=== PATIENT | male | born 1950 | race Caucasian/White ===

== ENCOUNTER 2019-07-04 11:20 | Outpatient (CLI) | payer MEDICARE, OTHER, SELFPAY ==
[2019-07-04] VITALS (9 sets, daily range): BP systolic 82–97; BP diastolic 53–61; PULSE 60–71; RESP 11–17; TEMP 36.1–37.1; O2SAT 97–100; BMI 20.7
--- NOTE | 2019-07-04 | DI.CT.S_ITS ---
PROCEDURE: CT BIOPSY PELVIS DEEP Sedation analgesia for 30 minutes. INDICATIONS: pelvis mass TECHNIQUE: The indications, alternatives, benefits, risks, and possible complications of the procedure were communicated to the patient. Informed written consent from the patient was obtained and placed in the chart. Continuous EKG and hemodynamic monitoring was started by trained personnel. The patient was brought to the CT suite and golf club head inspector spiral CT imaging was performed with localization grid. The appropriate site for percutaneous access to the biopsy target was marked, was prepped and draped sterilely, and was infused with local anaesthesia. Under CT guidance, a core biopsy trocar and needle set was advanced to the biopsy target, and specimen(s) were obtained. The trocar and needle were then removed, and the patient was sent for post-procedure monitoring. COMPARISON: None. FINDINGS: Biopsy site: Right retroperitoneal mass in the lower abdomen. Needle: 20 gauge biopsy needle with introducer trocar. Number of passes: 6 Medications: 1% lidocaine for local anaesthesia. IV Fentanyl and Versed for conscious sedation for 30 minutes (see nursing record). Complications: None. IMPRESSION: Successful CT-guided biopsy of right retroperitoneal mass. Dictated by: Filiberto Alegre M.D. on 07/04/2019 at 18:08 Approved by: Filiberto Alegre M.D. on 07/04/2019 at 18:10
--- NOTE | 2019-07-04 14:10 | PATH_ITS ---
[facility] Accession Number: [id number] . 01 Material submitted: . retroperitoneum - RIGHT RETROPERITONEAL MASS LOWER BACK/PELVIS . 01 Clinical history: . NEEDLE CORE BIOPSY . 01 Diagnosis: Retroperitoneum, Right, Core needle biopsy: --- Atypical lymphoid infiltrate ----- Predominately B-lymphoid cells See comment [facility] 07/11/2019 1453 Local . 01 Comment: Core needle biopsy fragments demonstrate a monotonous population of small/medium sized lymphoid cells which, by immunohistochemistry, comprises predominately B-lymphoid cells which do not express CD5, CD10 or CyclinD1. The mitotic index is low (Ki-67 < 5%). The biopsy type precludes assessment of the architecture of the process. These findings are suspicious for but are not definitively diagnostic of a lymphoproliferative disorder. Dense lymphoid infiltration can also be seen in retroperitoneal sites in association with other non-hematopoietic abnormalities. If possible, excisional biopsy or flow cytometric analysis of an additional sample (submit fresh tissue in RPMI) may be helpful. Clinical correlation is requested. . 01 Electronically signed: . Jayne Marino MD, Pathologist NPI- [id number] . 01 Gross description: . RIGHT RETROPERITONEAL MASS LOWER BACK/PELVIS: Received in formalin are 2 fragment(s) of arellano, soft tissue measuring 0.5 x 0.1 x 0.1 cm to 0.6 x 0.1 x 0.1 cm submitted entirely in 1 cassette(s) /[facility] [place] 07/04/2019 2311 Local . 01 Microscopic: . H/E levels demonstrate fragments of tissue compatible with a core needle biopsy. Soft tissue is infiltrated by a monotonous population of cells with high N/C ratios; focally, there is significant crush artifact. Follicular architecture is not identified; germinal centers are not identified. The infiltrate appears to be of small and medium sized cells; some pigment is seen in the background. There is no evidence of cells with Quoc-Nathan or Hodgkin-like cytologic features. There is no evidence of a significant eosinophilic infiltrate; mitotic activity is not readily apparent. There is no evidence of active inflammation, granulomata or necrosis. In order to more fully characterize this process, immunohistochemical stains were indicated. The controls reacted appropriately. See below for Laboratory information. . Findings: JAMESON: Negative SOX-10: Negative Synaptophysin: Negative Desmin: Negative CD43: A subset of cells is positive (membranous staining/strong) . PAX5: Many positive (nuclear staining/strong), forming sheets. . CD3: Scattered positive (membranous/strong), none large or forming clusters CD5: Scattered positive (membranous/strong), none large or forming clusters; pattern mirrors CD3, fewer in number CD10: Negative CD23: Scattered cells positive (cytoplasmic/moderate); non-specific staining present. BCL2: Majority of cells positive (cytoplasmic/strong) BCL6: Essentially negative CyclinD1: Negative Ki-67: Less than 5% positive (nuclear/strong) . Interpretation: Predominately B-lymphoid infiltrate with low mitotic activity; no definitive evidence of clonality. . Technical Note: The immunohistochemistry stains reported were performed at [facility] [place] ([address], [facility] [address]). They were developed and their performance characteristics determined by [employer] They have not been cleared or approved by the U.S. Food and Drug Administration, although such approval is not required for analyte-specific reagents of this type. . 01 Pathologist provided ICD-10: K68.9 . 01 CPT . 450573, P00807, K07702, [id number] Performed at: 01 [facility] [address], [place], [place] [id number] MD Vitor Kovacs MD Phone: [phone]
--- NOTE | 2019-07-04 14:41 | SUR.PHASEII ---
PT RETURNED FROM DI IN STABLE CONDITION, VSS. PT ALERT AND TALKING TO RN. PT BROTHER BROUGHT TO BEDSIDE. DRSG OBSERVED TO BE C/D/I. PT DENIED ANY PAIN DISCOMFORT OR NAUSEA. IV SITE CLEAR AND INFUSING WITHOUT DIFFICULTLY, HUNG BY DI NURSE. BED IN LOWEST POSITION AND CALL LIGHT GIVEN TO PT. PT APPEARS COMFORTABLE AT THIS TIME.
--- NOTE | 2019-07-04 15:24 | SUR.PHASEII ---
PT DRSG REMAINED C/D/I AT Q15 MINUTE CHECKS FIRST HOUR AFTER COMPLETION OF PROCEDURE. PT SITTING UP, EATING LUNCH AND CONVERSING WITH PT BROTHER. PT CONTINUES TO DENY ANY PAIN/DISCOMFORT AT THIS TIME.
[2019-07-04 17:10] LABS: Hematocrit 30.1 % (41-53)
--- NOTE | 2019-07-04 17:21 | SUR.PHASEII ---
Dr. Alegre notified of lab results and patient status. VVO patient may discharge.
== END 2019-07-04 17:40 | disposition home or self-care (01) ==
PROVIDERS: Radiology Diagnostic Radiology; Visit Provider Internal Medicine
PROC: BR2CZZZ Computerized Tomography (CT Scan) of Pelvis (ICD-10-PCS; CPT 77012; principal; 2019-07-04 13:00)
DX: R19.00 Intra-abdominal and pelvic swelling, mass and lump, unspecified site (principal)
CPT/HCPCS: 27041; 36415; 49180; 77012; 85014; Q9967

== ENCOUNTER 2022-12-23 12:38 | Inpatient (IN) | payer MEDICARE, OTHER, SELFPAY ==
[2022-12-23] VITALS (14 sets, daily range): BP systolic 103–121; BP diastolic 51–61; PULSE 59–67; RESP 9–19; TEMP 36.4–36.8; O2SAT 96–100; BMI 16.5
--- NOTE | 2022-12-23 13:30 | ED_ITS ---
HPI - Extremity Injury (Lower) <Carmelo Shaw PA-C - Last Filed: 12/23/22 17:25> General Chief Complaint: Fall Stated Complaint: Fall, hit head, Rt. hip pain with shortening. Time Seen by Provider: 12/23/22 13:29 History of Present Illness HPI Narrative: This is a 72-year-old male presents emergency department due to a fall after a dog jumped up and knocked him down. He is complaining of primarily severe right hip pain although he is reporting hitting his head. Denies any loss of consciousness. Is not taking any blood thinners. Mainly complaining of right hip pain and denies any other extremity pain. Last had breakfast at 10:00 a.m. this morning. 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 Related Data Home Medications Medication Instructions Recorded Confirmed citalopram 40 mg tablet 40 mg PO DAILY 07/04/19 07/04/19 gabapentin 300 mg capsule 600 mg PO TID 07/04/19 07/04/19 pantoprazole 20 mg tablet,delayed 40 mg PO DAILY 07/04/19 07/04/19 release (Protonix) primidone 250 mg tablet 250 mg PO DAILY 07/04/19 07/04/19 propranolol 80 mg tablet 80 mg PO DAILY 07/04/19 07/04/19 Allergies Allergy/AdvReac Type Severity Reaction Status Date / Time haloperidol Allergy Severe Hallucinati Verified 07/04/19 12:49 ng Penicillins Allergy Severe swelling Verified 07/04/19 12:50 Review of Systems <Carmelo Shaw PA-C - Last Filed: 12/23/22 17:25> Review of Systems Narrative: GENERAL: Denies chills, fatigue, malaise, fever, sweats. HEENT: Reports head pain Denies sinus pain, ear pain, sore throat, difficulty swallowing, dizziness. RESPIRATORY: Denies dyspnea, cough, wheezing, hemoptysis, sputum. CARDIOVASCULAR: Denies chest pain, palpitations, orthopnea, edema, GASTROINTESTINAL: Denies nausea, vomiting, abdominal pain, diarrhea, const ipation, melena. : Denies dysuria, frequency, incontinence, hematuria, urinary retention. MUSCULOSKELETAL: Reports right hip pain SKIN: Denies rash, skin lesions, or other NEUROLOGIC: Denies weakness, headache, numbness, change in speech, confusion, seizures, incoordination. PSYCHIATRIC: No concerning psychosocial issues. 12 point review of systems is negative except for those stated above Patient History <Carmelo Shaw PA-C - Last Filed: 12/23/22 17:25> Social History household members: none Smoking Status: Former smoker alcohol intake: never Smoking Status: Former smoker Substance Use Type: does not use Exam <JOSELITO Raya Last Filed: 12/23/22 17:25> Narrative Exam Narrative: GENERAL: Well-developed patient, in mild distress. HEAD: Some tenderness to palpation to the posterior head, EYES: Pupils equal round and reactive. Extraocular motions intact. No scleral icterus. No injection or drainage. ENT: Nose without bleeding, purulent drainage. Throat without erythema, tonsillar hypertrophy or exudate. Airway patent. NECK: Trachea midline. No tenderness of the cervical spine CARDIOVASCULAR: Regular rate and rhythm without murmurs, gallops, or rubs. RESPIRATORY: Clear to auscultation. Breath sounds equal bilaterally. No wheezes, rales, or rhonchi. GASTROINTESTINAL: Right-sided abdominal tenderness to palpation EXTREMITIES: In a pelvic sheet, Severe tenderness to palpation to the right hip, shortened externally rotated, distally neurovascularly intact, 2+ dorsalis pedis pulse bilaterally BACK: Nontender without deformity or crepitance. No flank tenderness. NEURO: AOx3. SKIN: No rash or erythema of visible areas Initial Vital Signs Initial Vital Signs: Vital Signs Pulse Rate 67 12/23/22 13:16 Pulse Oximetry 99 12/23/22 13:16 <Anabell Cancino DO - Last Filed: 12/24/22 07:25> Initial Vital Signs Initial Vital Signs: Vital Signs Pulse Rate 67 12/23/22 13:16 Pulse Oximetry 99 12/23/22 13:16 Course <JOSELITO Raya Last Filed: 12/23/22 17:25> Orders Ordered: Acetaminophen (Acetaminophen 325 Mg Tablet) 650 mg PO Q6H PRN PRN Reason: Fever/Mild Pain (1-3) Citalopram Hydrobromide (Citalopram 10 Mg Tablet) 40 mg PO DAILY [facility] Gabapentin (Gabapentin 300 Mg Capsule) 600 mg PO TID [facility] Last Admin: 12/23/22 20:18 Dose: 600 mg Documented By: ADITYA Hydromorphone HCl (Hydromorphone 0.5 Mg Inj) 0.5 mg IV Q4H PRN PRN Reason: Pain, Moderate (4-6) Last Admin: 12/23/22 17:27 Dose: 0.5 mg Documented By: LOUIE Lactated Ringer's (Lactated Ringers) 1,000 mls @ 75 mls/hr IV CONT [facility] Last Admin: 12/23/22 23:54 Dose: 75 mls/hr Documented By: KODAK Melatonin (Melatonin 3 Mg Tablet) 6 mg PO BEDTIME PRN PRN Reason: Insomnia Naloxone HCl (Naloxone 0.4 Mg/Ml Vial) 0.2 mg IV Q2MIN PRN PRN Reason: Opiate Reversal Oxycodone HCl (Oxycodone Ir 5 Mg Tablet) 5 mg PO Q4HR PRN PRN Reason: Pain, Moderate (4-6) Oxycodone HCl (Oxycodone Ir 10 Mg Tablet) 10 mg PO Q4HR PRN PRN Reason: Pain, Severe (7-10) Last Admin: 12/23/22 19:09 Dose: 10 mg Documented By: LOUIE Pantoprazole Sodium (Pantoprazole Dr 20 Mg Tablet) 40 mg PO DAILY [facility] Polyethylene Glycol (Polyethylene Glycol 3350 17 Gm Powd.Pack) 17 gm PO DAILY PRN PRN Reason: Constipation Primidone (Primidone 50 Mg Tablet) 250 mg PO DAILY [facility] Sennosides (Sennosides 8.6 Mg Tablet) 8.6 mg PO BID PRN PRN Reason: Constipation Discontinued Medications Enoxaparin Sodium (Enoxaparin 40 Mg/0.4 Ml Syringe) 40 mg SUBCUT NOW ONE Stop: 12/23/22 16:29 Last Admin: 12/23/22 17:43 Dose: 40 mg Documented By: LOUIE Sodium Chloride (Normal Saline 0.9%) 1,000 mls @ 100 mls/hr IV CONT [facility] Stop: 12/24/22 04:29 Last Infusion: 12/23/22 23:54 Dose: 0 mls/hr Documented By: Infusion: 12/23/22 19:05 Dose: 100 mls/hr Documented By: Admin: 12/23/22 17:28 Dose: 75 mls/hr Documented By: LOUIE Morphine Sulfate (Morphine 4 Mg/Ml Inj) 4 mg IV NOW ONE Stop: 12/23/22 15:03 Last Admin: 12/23/22 15:14 Dose: 4 mg Documented By: TOMI Vital Signs Vital signs: Vital Signs - 8 hr 12/23/22 13:28 12/23/22 13:16 12/23/22 13:19 Temperature 97.5 F L Pulse Rate 66 67 Respiratory Rate 16 Blood Pressure 112/58 L 112/58 L Pulse Oximetry 100 99 Oxygen Delivery Method Room Air 12/23/22 13:19 12/23/22 13:30 12/23/22 14:00 Temperature Pulse Rate 66 65 63 Respiratory Rate 12 9 L Blood Pressure Pulse Oximetry 99 99 100 Oxygen Delivery Method 12/23/22 14:30 12/23/22 15:00 12/23/22 15:30 Temperature Pulse Rate 61 59 L 59 L Respiratory Rate 11 L 19 13 Blood Pressure Pulse Oximetry 99 96 97 Oxygen Delivery Method 12/23/22 16:00 Temperature Pulse Rate 62 Respiratory Rate 17 Blood Pressure Pulse Oximetry 97 Oxygen Delivery Method <Anabell Cancino, DO - Last Filed: 12/24/22 07:25> Orders Ordered: Acetaminophen (Acetaminophen 325 Mg Tablet) 650 mg PO Q6H PRN PRN Reason: Fever/Mild Pain (1-3) Citalopram Hydrobromide (Citalopram 10 Mg Tablet) 40 mg PO DAILY [facility] Gabapentin (Gabapentin 300 Mg Capsule) 600 mg PO TID [facility] Last Admin: 12/23/22 20:18 Dose: 600 mg Documented By: ADITYA Hydromorphone HCl (Hydromorphone 0.5 Mg Inj) 0.5 mg IV Q4H PRN PRN Reason: Pain, Moderate (4-6) Last Admin: 12/23/22 17:27 Dose: 0.5 mg Documented By: LOUIE Lactated Ringer's (Lactated Ringers) 1,000 mls @ 75 mls/hr IV CONT [facility] Last Admin: 12/23/22 23:54 Dose: 75 mls/hr Documented By: KODAK Melatonin (Melatonin 3 Mg Tablet) 6 mg PO BEDTIME PRN PRN Reason: Insomnia Naloxone HCl (Naloxone 0.4 Mg/Ml Vial) 0.2 mg IV Q2MIN PRN PRN Reason: Opiate Reversal Oxycodone HCl (Oxycodone Ir 5 Mg Tablet) 5 mg PO Q4HR PRN PRN Reason: Pain, Moderate (4-6) Oxycodone HCl (Oxycodone Ir 10 Mg Tablet) 10 mg PO Q4HR PRN PRN Reason: Pain, Severe (7-10) Last Admin: 12/23/22 19:09 Dose: 10 mg Documented By: LOUIE Pantoprazole Sodium (Pantoprazole Dr 20 Mg Tablet) 40 mg PO DAILY [facility] Polyethylene Glycol (Polyethylene Glycol 3350 17 Gm Powd.Pack) 17 gm PO DAILY PRN PRN Reason: Constipation Primidone (Primidone 50 Mg Tablet) 250 mg PO DAILY [facility] Sennosides (Sennosides 8.6 Mg Tablet) 8.6 mg PO BID PRN PRN Reason: Constipation Discontinued Medications Enoxaparin Sodium (Enoxaparin 40 Mg/0.4 Ml Syringe) 40 mg SUBCUT NOW ONE Stop: 12/23/22 16:29 Last Admin: 12/23/22 17:43 Dose: 40 mg Documented By: LOUIE Sodium Chloride (Normal Saline 0.9%) 1,000 mls @ 100 mls/hr IV CONT [facility] Stop: 12/24/22 04:29 Last Infusion: 12/23/22 23:54 Dose: 0 mls/hr Documented By: Infusion: 12/23/22 19:05 Dose: 100 mls/hr Documented By: Admin: 12/23/22 17:28 Dose: 75 mls/hr Documented By: LOUIE Morphine Sulfate (Morphine 4 Mg/Ml Inj) 4 mg IV NOW ONE Stop: 12/23/22 15:03 Last Admin: 12/23/22 15:14 Dose: 4 mg Documented By: TOMI Vital Signs Vital signs: Vital Signs - 8 hr 12/23/22 13:28 12/23/22 13:16 12/23/22 13:19 Temperature 97.5 F L Pulse Rate 66 67 Respiratory Rate 16 Blood Pressure 112/58 L 112/58 L Pulse Oximetry 100 99 Oxygen Delivery Method Room Air 12/23/22 13:19 12/23/22 13:30 12/23/22 14:00 Temperature Pulse Rate 66 65 63 Respiratory Rate 12 9 L Blood Pressure Pulse Oximetry 99 99 100 Oxygen Delivery Method 12/23/22 14:30 12/23/22 15:00 12/23/22 15:30 Temperature Pulse Rate 61 59 L 59 L Respiratory Rate 11 L 19 13 Blood Pressure Pulse Oximetry 99 96 97 Oxygen Delivery Method 12/23/22 16:00 Temperature Pulse Rate 62 Respiratory Rate 17 Blood Pressure Pulse Oximetry 97 Oxygen Delivery Method MDM - Extremity Injury (Lower) <Carmelo Shaw PA-C - Last Filed: 12/23/22 17:25> Lab Data 12/24/22 03:55 12/24/22 03:55 Labs: Lab Results 12/23/22 12/23/22 12/23/22 Range/Units 13:42 13:45 13:45 WBC 4.1 L (4.5-11.0) X10^3/uL RBC 2.82 L (4.5-5.9) X10^6/uL Hgb 10.0 L (13.5-17.5) g/dL Hct 29.2 L (41-53) % MCV 103.5 H (80-100) fL MCH 35.5 H (26-34) PG MCHC 34.3 (30-36) % RDW 13.5 (11.6-14.8) % Plt Count 165 (150-400) X10^3/uL Neut % (Auto) Not Reportable Lymph % (Auto) Not Reportable Wilson % (Auto) Not Reportable Eos % (Auto) Not Reportable Baso % (Auto) Not Reportable Lymph # (Auto) Not Reportable Wilson # (Auto) Not Reportable Baso # (Auto) Not Reportable Total Counted 100 Seg Neutrophils % 53.0 (38-70) % Band Neutrophils % 16.0 H (3-7) % Lymphocytes % (Manual) 6.0 L (25-45) % Monocytes % (Manual) 13.0 H (2-11) % Eosinophils % (Manual) 1.0 L (2-4) % Metamyelocytes % 11.0 H (-0) % Neutrophils # (Manual) 2829 L (6254-7558) /uL RBC Morphology See below Macrocytosis 1+ H PT 13.2 H (10.1-12.7) SECONDS INR 1.2 (0.9-1.3) Sodium (137-145) mmol/L Potassium (3.4-5.1) mmol/L Chloride (98-107) mmol/L Carbon Dioxide (22-32) mmol/L BUN (9-20) mg/dL Creatinine (0.66-1.25) mg/dL Estimated GFR (>60) mL/min BUN/Creatinine Ratio (6-22) Glucose (80-110) mg/dL Calcium (8.4-10.2) mg/dL Magnesium (1.6-2.3) mg/dL Total Bilirubin (0.2-1.3) mg/dL AST (17-59) IU/L ALT (<50) IU/L Alkaline Phosphatase (38-126) U/L Total Protein (6.3-8.2) g/dL Albumin (3.5-5.0) g/dL Globulin (1.7-4.1) g/dL Albumin/Globulin Ratio (1.0-2.8) Blood Type A Positive Antibody Screen Negative 12/23/22 12/23/22 Range/Units 13:45 13:45 WBC (4.5-11.0) X10^3/uL RBC (4.5-5.9) X10^6/uL Hgb (13.5-17.5) g/dL Hct (41-53) % MCV (80-100) fL MCH (26-34) PG MCHC (30-36) % RDW (11.6-14.8) % Plt Count (150-400) X10^3/uL Neut % (Auto) Lymph % (Auto) Wilson % (Auto) Eos % (Auto) Baso % (Auto) Lymph # (Auto) Wilson # (Auto) Baso # (Auto) Total Counted Seg Neutrophils % (38-70) % Band Neutrophils % (3-7) % Lymphocytes % (Manual) (25-45) % Monocytes % (Manual) (2-11) % Eosinophils % (Manual) (2-4) % Metamyelocytes % (-0) % Neutrophils # (Manual) (7522-5225) /uL RBC Morphology Macrocytosis PT (10.1-12.7) SECONDS INR (0.9-1.3) Sodium 138 (137-145) mmol/L Potassium 3.5 (3.4-5.1) mmol/L Chloride 106 (98-107) mmol/L Carbon Dioxide 25 (22-32) mmol/L BUN 13 (9-20) mg/dL Creatinine 0.98 (0.66-1.25) mg/dL Estimated GFR > 60 (>60) mL/min BUN/Creatinine Ratio 13.3 (6-22) Glucose 103 (80-110) mg/dL Calcium 8.9 (8.4-10.2) mg/dL Magnesium 1.8 (1.6-2.3) mg/dL Total Bilirubin 0.4 (0.2-1.3) mg/dL AST 21 (17-59) IU/L ALT 17 (<50) IU/L Alkaline Phosphatase 46 (38-126) U/L Total Protein 5.6 L (6.3-8.2) g/dL Albumin 3.5 (3.5-5.0) g/dL Globulin 2.1 (1.7-4.1) g/dL Albumin/Globulin Ratio 1.7 (1.0-2.8) Blood Type Antibody Screen Imaging Data Extremity x-ray #1: Radiologist's Impression: [address] [address] XRay Report Signed Patient: Red Daniels MR#: [id number] : 1950 Acct:[id number] Age/Sex: 72 / M Date of Service: 12/23/22 Loc: ED Accession Number: [id number] ?? Procedure: XR hip w pel if done RT 2V Ordering Provider: Carmelo Shaw P.A-C PROCEDURE:? XR HIP W PEL IF DONE RT 2V ? INDICATIONS:? R leg short rotated after fall ? TECHNIQUE:? AP pelvis with lateral view(s) of the right hip(s).? ? COMPARISON:? None. ? FINDINGS:? ? Bones:? There is a comminuted, displaced intertrochanteric fracture of the proximal right femur.? Diffuse osteopenia.? Femoral head contours remain rounded smooth bilaterally.? Pelvic ring appears intact.? No suspicious bony lesions.? ? Soft tissues:? The visualized bowel gas pattern is normal.? No suspicious soft tissue calcifications.? ? ? IMPRESSION:? Comminuted, displaced intertrochanteric fracture of the proximal right femur. ? Dictated by: Filiberto Alegre M.D. on 12/23/2022 at 14:11 ? ? Approved by: Filiberto Alegre M.D. on 12/23/2022 at 14:12 ? CT - cervical spine: Radiologist's Impression: [address] [address] [address] Scan Report Signed Patient: Red Daniels MR#: [id number] : 1950 Acct:[id number] Age/Sex: 72 / M Date of Service: 12/23/22 Loc: ED Accession Number: [id number] ?? Procedure: CT cervical spine wo con Ordering Provider: Carmelo Shaw P.A-C PROCEDURE:? CT CERVICAL SPINE WO CON ? INDICATIONS:? Trauma ? TECHNIQUE:? Noncontrast 3 mm thick sections acquired from the skull base to the T4 level.? Sagittal and coronal reformats were then constructed.? For radiation dose reduction, the following was used:? automated exposure control, adjustment of mA and/or kV according to patient size.? ? COMPARISON:? None. ? FINDINGS:? Image quality:? Excellent.? ? Bones:? No acute fractures or dislocations.? No acute compression fractures of the vertebral bodies. Craniocervical junction is intact. C1-C2 relationship is preserved. Visualized superior ribs are intact.? Multilevel cervical spondylosis. ? Soft tissues:? Prevertebral soft tissues are normal in thickness.? No paravertebral hematomas.? No apical pneumothoraces.? ? ? IMPRESSION:? CT cervical spine without acute fracture or traumatic malalignment. ? ? ? Dictated by: Filiberto Alegre M.D. on 12/23/2022 at 14:13 ? ? Approved by: Filiberto Alegre M.D. on 12/23/2022 at 14:15 ? CT scan - head: Radiologist's Impression: [address] [address] [address] Scan Report Signed Patient: Red Daniels MR#: [id number] : 1950 Acct:[id number] Age/Sex: 72 / M Date of Service: 12/23/22 Loc: ED Accession Number: [id number] ?? Procedure: CT head/brain wo con Ordering Provider: Carmelo Shaw P.A-C PROCEDURE:? CT HEAD/BRAIN WO CON ? INDICATIONS:? Trauma ? TECHNIQUE:? Noncontrast 4.5 mm thick angled axial sections acquired from the foramen magnum to the vertex, with coronal and sagittal reformats.? For radiation dose reduction, the following was used:? automated exposure control, adjustment of mA and/or kV according to patient size.? ? COMPARISON:? None. ? FINDINGS:? Image quality:? Excellent.? ? CSF spaces:? Basal cisterns are patent.? No extra-axial fluid collections.? The ventricles are symmetric in size and shape.? ? Brain:? No intracranial bleeds or masses.? There is cerebral volume loss for age, with resultant ventricular and sulcal prominence.? There are periventricular and deep white matter chronic small vessel ischemic changes.? There is intracranial internal carotid artery atherosclerosis.? ? Skull and face:? Calvarium and visualized facial bones appear intact, without suspicious lesions.? ? Sinuses:? Bilateral maxillary sinus mucosal thickening. Remainder of the paranasal sinuses appear clear. Mastoid air cells are well-aerated.? ? IMPRESSION:? CT head without acute intracranial abnormalities.? No acute calvarial fractures.? Bilateral maxillary sinus disease. ? ? Dictated by: Filiberto Alegre M.D. on 12/23/2022 at 14:16 ? ? Approved by: Filiberto Alegre M.D. on 12/23/2022 at 14:17 ? CT scan - abdomen/pelvis: Radiologist's Impression: [place] [address] CT Scan Report Signed Patient: Red Daniels MR#: [id number] : 1950 Acct:[id number] Age/Sex: 72 / M Date of Service: 12/23/22 Loc: ED Accession Number: [id number] ?? Procedure: CT abdomen pelvis w con Ordering Provider: Carmelo Shaw P.A-C PROCEDURE:? CT ABDOMEN PELVIS W CON ? INDICATIONS:? R hip and R abdomen tenderness to palpation ? TECHNIQUE:? After the administration of intravenous contrast, axial sections acquired from the lung bases to the pubic symphysis.? Coronal and sagittal reformats were performed.? For radiation dose reduction, the following was used:? automated exposure control, adjustment of mA and/or kV according to patient size.? ? COMPARISON:? [facility], , CT ABDOMEN/PELVIS WITH CONTRAST, 06/11/2019, 19:55. ? FINDINGS:? Image quality:? Excellent.? ? Lung bases:? Unremarkable. Heart:? No significant findings. ABDOMEN: Liver:? Numerous tiny liver cysts, as before.? No suspicious solid lesions. Gallbladder:? Surgically absent? ? Biliary ducts:? Unremarkable.? ? Pancreas:? Unremarkable.? ? Spleen:? Unremarkable.? ? Adrenal Glands:? Unremarkable.? ? Kidneys and Ureters:? Unremarkable.? ? ? Stomach and Bowel:? Remote partial distal colectomy.? Distended stomach filled with debris.? No obstructing gastric outlet lesion is seen.? No thickened bowel l oops. Peritoneum:? No abnormal intraperitoneal fluid.? No free air.? ? Ventral Wall: ? No hernias.? Abdominal Nodes:? Previous very large retroperitoneal mass which previously encase the distal aorta and an inferior vena cava and extended to involve the right pelvic sidewall to the right obturator foramen is significantly decreased.? There is residual ill-defined low-density soft tissue extending along the right iliac chain to minimally involve the pelvic sidewall.? This may represent inactive treated disease.? No areas of increasing adenopathy are identified.? Vessels:? Aorta and inferior vena cava are normal in size.? ? PELVIS: Pelvic Organs:? Unremarkable.? ? Bladder:? Mild diffuse bladder wall thickening..? ? Pelvic Nodes: No enlarged lymph nodes.? Miscellaneous: No hernias are seen. ? ? ? Bones:? Comminuted trochanteric fracture of the right hip with varus angulation.? No dislocation.? No lytic or blastic bony lesions identified.? The bones are diffusely osteopenic.? No focal lytic or blastic bony lesions identified. ? ? IMPRESSION:? ? 1. Comminuted trochanteric fracture of the right hip with varus angulation. ? 2. No evidence acute abdominal process. ? 3. Significant improvement in previous very large retroperitoneal mass, with minimal residual it, possibly representing inactive chronic treated disease.? Comment:? Consider comparison to more recent prior studies. ? 4. Gastric distention.? No evidence of bowel obstruction. ? 5. Previous partial distal colectomy. ? 6. Diffuse osteopenia. ? ? Dictated by: Ji Shannon M.D. on 12/23/2022 at 15:30 ? ? Approved by: Ji Shannon M.D. on 12/23/2022 at 15:38 ? MDM Narrative Medical decision making narrative: MDM * differential diagnosis includes but not limited to right femur fracture, pelvis fracture, cervical spine injury, intracranial bleed, * Prior records reviewed: Patient has not been here in the past. * My lab interpretation: Mildly leukopenic at 4.1 as well as anemic with hemoglobin 10 unsure whether these may be chronic for the patient. CMP unremarkable * My imgaing interpretation: CT abdomen and pelvis remarkable for the c omminuted trochanteric fracture of the right hip. CT head and neck negative. * Clinical Decision Rules/Scores evaluated: None * Independent discussions with: None ED Course: This is a 72-year-old male presents emergency department due to a trochanteric fracture of the right hip after having a dog tympanum causing him to fall over. He is not on blood thinners. CT head and neck ordered as patient reported hitting his head these were both negative as well. Case was discussed with Dr. Recinos, orthopedist, who reviewed the imaging and recommended admission for medical workup prior to probable OR tomorrow. Recommended NPO at midnight. 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 Discussed the case with Dr. Marquez, hosp italist, who kindly accepted the patient for admission. Shared Decision Making: Discussed plan with patient who is comfortable with the plan Social Considerations: None Disposition: Admit to hospitalist <Anabell Cancino, - Last Filed: 12/24/22 07:25> Lab Data Labs: Lab Results 12/23/22 12/23/22 12/23/22 Range/Units 13:42 13:45 13:45 WBC 4.1 L (4.5-11.0) X10^3/uL RBC 2.82 L (4.5-5.9) X10^6/uL Hgb 10.0 L (13.5-17.5) g/dL Hct 29.2 L (41-53) % MCV 103.5 H (80-100) fL MCH 35.5 H (26-34) PG MCHC 34.3 (30-36) % RDW 13.5 (11.6-14.8) % Plt Count 165 (150-400) X10^3/uL Neut % (Auto) Not Reportable Lymph % (Auto) Not Reportable Wilson % (Auto) Not Reportable Eos % (Auto) Not Reportable Baso % (Auto) Not Reportable Lymph # (Auto) Not Reportable Wilson # (Auto) Not Reportable Baso # (Auto) Not Reportable Total Counted 100 Seg Neutrophils % 53.0 (38-70) % Band Neutrophils % 16.0 H (3-7) % Lymphocytes % (Manual) 6.0 L (25-45) % Monocytes % (Manual) 13.0 H (2-11) % Eosinophils % (Manual) 1.0 L (2-4) % Metamyelocytes % 11.0 H (-0) % Neutrophils # (Manual) 2829 L (8702-5220) /uL RBC Morphology See below Macrocytosis 1+ H PT 13.2 H (10.1-12.7) SECONDS INR 1.2 (0.9-1.3) Sodium (137-145) mmol/L Potassium (3.4-5.1) mmol/L Chloride (98-107) mmol/L Carbon Dioxide (22-32) mmol/L BUN (9-20) mg/dL Creatinine (0.66-1.25) mg/dL Estimated GFR (>60) mL/min BUN/Creatinine Ratio (6-22) Glucose (80-110) mg/dL Calcium (8.4-10.2) mg/dL Magnesium (1.6-2.3) mg/dL Total Bilirubin (0.2-1.3) mg/dL AST (17-59) IU/L ALT (<50) IU/L Alkaline Phosphatase (38-126) U/L Total Protein (6.3-8.2) g/dL Albumin (3.5-5.0) g/dL Globulin (1.7-4.1) g/dL Albumin/Globulin Ratio (1.0-2.8) Blood Type A Positive Antibody Screen Negative 12/23/22 12/23/22 Range/Units 13:45 13:45 WBC (4.5-11.0) X10^3/uL RBC (4.5-5.9) X10^6/uL Hgb (13.5-17.5) g/dL Hct (41-53) % MCV (80-100) fL MCH (26-34) PG MCHC (30-36) % RDW (11.6-14.8) % Plt Count (150-400) X10^3/uL Neut % (Auto) Lymph % (Auto) Wilson % (Auto) Eos % (Auto) Baso % (Auto) Lymph # (Auto) Wilson # (Auto) Baso # (Auto) Total Counted Seg Neutrophils % (38-70) % Band Neutrophils % (3-7) % Lymphocytes % (Manual) (25-45) % Monocytes % (Manual) (2-11) % Eosinophils % (Manual) (2-4) % Metamyelocytes % (-0) % Neutrophils # (Manual) (8165-4170) /uL RBC Morphology Macrocytosis PT (10.1-12.7) SECONDS INR (0.9-1.3) Sodium 138 (137-145) mmol/L Potassium 3.5 (3.4-5.1) mmol/L Chloride 106 (98-107) mmol/L Carbon Dioxide 25 (22-32) mmol/L BUN 13 (9-20) mg/dL Creatinine 0.98 (0.66-1.25) mg/dL Estimated GFR > 60 (>60) mL/min BUN/Creatinine Ratio 13.3 (6-22) Glucose 103 (80-110) mg/dL Calcium 8.9 (8.4-10.2) mg/dL Magnesium 1.8 (1.6-2.3) mg/dL Total Bilirubin 0.4 (0.2-1.3) mg/dL AST 21 (17-59) IU/L ALT 17 (<50) IU/L Alkaline Phosphatase 46 (38-126) U/L Total Protein 5.6 L (6.3-8.2) g/dL Albumin 3.5 (3.5-5.0) g/dL Globulin 2.1 (1.7-4.1) g/dL Albumin/Globulin Ratio 1.7 (1.0-2.8) Blood Type Antibody Screen Discharge Plan Departure Patient Disposition: Admitted As Inpatient Clinical Impression: Trochanteric fracture of right femur Admit Date/Time: 12/23/22 16:12 Admit Provider: Jamal Marquez <Anabell Cancino, - Last Filed: 12/24/22 07:25> Cosign ED Attending Cosignature Attestation: I was immediately available in the department for consultation. Documentation has been reviewed.
--- NOTE | 2022-12-23 13:32 | DI.RAD.S_ITS ---
PROCEDURE: XR HIP W PEL IF DONE RT 2V INDICATIONS: R leg short rotated after fall TECHNIQUE: AP pelvis with lateral view(s) of the right hip(s). COMPARISON: None. FINDINGS: Bones: There is a comminuted, displaced intertrochanteric fracture of the proximal right femur. Diffuse osteopenia. Femoral head contours remain rounded smooth bilaterally. Pelvic ring appears intact. No suspicious bony lesions. Soft tissues: The visualized bowel gas pattern is normal. No suspicious soft tissue calcifications. IMPRESSION: Comminuted, displaced intertrochanteric fracture of the proximal right femur. Dictated by: Filiberto Alegre M.D. on 12/23/2022 at 14:11 Approved by: Filiberto Alegre M.D. on 12/23/2022 at 14:12
--- NOTE | 2022-12-23 13:35 | DI.CT.S_ITS ---
PROCEDURE: CT HEAD/BRAIN WO CON INDICATIONS: Trauma TECHNIQUE: Noncontrast 4.5 mm thick angled axial sections acquired from the foramen magnum to the vertex, with coronal and sagittal reformats. For radiation dose reduction, the following was used: automated exposure control, adjustment of mA and/or kV according to patient size. COMPARISON: None. FINDINGS: Image quality: Excellent. CSF spaces: Basal cisterns are patent. No extra-axial fluid collections. The ventricles are symmetric in size and shape. Brain: No intracranial bleeds or masses. There is cerebral volume loss for age, with resultant ventricular and sulcal prominence. There are periventricular and deep white matter chronic small vessel ischemic changes. There is intracranial internal carotid artery atherosclerosis. Skull and face: Calvarium and visualized facial bones appear intact, without suspicious lesions. Sinuses: Bilateral maxillary sinus mucosal thickening. Remainder of the paranasal sinuses appear clear. Mastoid air cells are well-aerated. IMPRESSION: CT head without acute intracranial abnormalities. No acute calvarial fractures. Bilateral maxillary sinus disease. Dictated by: Filiberto Alegre M.D. on 12/23/2022 at 14:16 Approved by: Filiberto Alegre M.D. on 12/23/2022 at 14:17
--- NOTE | 2022-12-23 13:35 | DI.CT.S_ITS ---
PROCEDURE: CT CERVICAL SPINE WO CON INDICATIONS: Trauma TECHNIQUE: Noncontrast 3 mm thick sections acquired from the skull base to the T4 level. Sagittal and coronal reformats were then constructed. For radiation dose reduction, the following was used: automated exposure control, adjustment of mA and/or kV according to patient size. COMPARISON: None. FINDINGS: Image quality: Excellent. Bones: No acute fractures or dislocations. No acute compression fractures of the vertebral bodies. Craniocervical junction is intact. C1-C2 relationship is preserved. Visualized superior ribs are intact. Multilevel cervical spondylosis. Soft tissues: Prevertebral soft tissues are normal in thickness. No paravertebral hematomas. No apical pneumothoraces. IMPRESSION: CT cervical spine without acute fracture or traumatic malalignment. Dictated by: Filiberto Alegre M.D. on 12/23/2022 at 14:13 Approved by: Filiberto Alegre M.D. on 12/23/2022 at 14:15
--- NOTE | 2022-12-23 13:35 | DI.CT.S_ITS ---
PROCEDURE: CT ABDOMEN PELVIS W CON INDICATIONS: R hip and R abdomen tenderness to palpation TECHNIQUE: After the administration of intravenous contrast, axial sections acquired from the lung bases to the pubic symphysis. Coronal and sagittal reformats were performed. For radiation dose reduction, the following was used: automated exposure control, adjustment of mA and/or kV according to patient size. COMPARISON: [facility], RG, CT ABDOMEN/PELVIS WITH CONTRAST, 06/11/2019, 19:55. FINDINGS: Image quality: Excellent. Lung bases: Unremarkable. Heart: No significant findings. ABDOMEN: Liver: Numerous tiny liver cysts, as before. No suspicious solid lesions. Gallbladder: Surgically absent Biliary ducts: Unremarkable. Pancreas: Unremarkable. Spleen: Unremarkable. Adrenal Glands: Unremarkable. Kidneys and Ureters: Unremarkable. Stomach and Bowel: Remote partial distal colectomy. Distended stomach filled with debris. No obstructing gastric outlet lesion is seen. No thickened bowel loops. Peritoneum: No abnormal intraperitoneal fluid. No free air. Ventral Wall: No hernias. Abdominal Nodes: Previous very large retroperitoneal mass which previously encase the distal aorta and an inferior vena cava and extended to involve the right pelvic sidewall to the right obturator foramen is significantly decreased. There is residual ill-defined low-density soft tissue extending along the right iliac chain to minimally involve the pelvic sidewall. This may represent inactive treated disease. No areas of increasing adenopathy are identified. Vessels: Aorta and inferior vena cava are normal in size. PELVIS: Pelvic Organs: Unremarkable. Bladder: Mild diffuse bladder wall thickening.. Pelvic Nodes: No enlarged lymph nodes. Miscellaneous: No hernias are seen. Bones: Comminuted trochanteric fracture of the right hip with varus angulation. No dislocation. No lytic or blastic bony lesions identified. The bones are diffusely osteopenic. No focal lytic or blastic bony lesions identified. IMPRESSION: 1. Comminuted trochanteric fracture of the right hip with varus angulation. 2. No evidence acute abdominal process. 3. Significant improvement in previous very large retroperitoneal mass, with minimal residual it, possibly representing inactive chronic treated disease. Comment: Consider comparison to more recent prior studies. 4. Gastric distention. No evidence of bowel obstruction. 5. Previous partial distal colectomy. 6. Diffuse osteopenia. Dictated by: Ji Shannon M.D. on 12/23/2022 at 15:30 Approved by: Ji Shannon M.D. on 12/23/2022 at 15:38
[2022-12-23 14:12] LABS: Hematocrit 29.2 % (41-53); Mean Corpuscular HGB Conc 34.3 % (30-36); Mean Corpuscular Hemoglobin 35.5 PG (26-34); Mean Corpuscular Volume 103.5 fL (80-100); Platelet Count 165 X10^3/uL (150-400); Red Blood Cell Count 2.82 X10^6/uL (4.5-5.9); Red Cell Distribution Width 13.5 % (11.6-14.8); White Blood Cell Count 4.1 X10^3/uL (4.5-11.0)
[2022-12-23 14:14] LABS: INR 1.2 (0.9-1.3); Prothrombin Time 13.2 SECONDS (10.1-12.7)
[2022-12-23 14:19] LABS: Alanine Aminotransferase 17 IU/L (<50); Albumin 3.5 g/dL (3.5-5.0); Albumin Globulin Ratio 1.7 (1.0-2.8); Alkaline Phosphatase 46 U/L (38-126); Aspartate Aminotransferase 21 IU/L (17-59); BUN Creatinine Ratio 13.3 (6-22); Bilirubin Total 0.4 mg/dL (0.2-1.3); Blood Urea Nitrogen 13 mg/dL (9-20); Calcium 8.9 mg/dL (8.4-10.2); Carbon Dioxide 25 mmol/L (22-32); Chloride 106 mmol/L (98-107); Estimated Glomerular Filt Rate > 60 mL/min (>60); Globulin 2.1 g/dL (1.7-4.1); Glucose 103 mg/dL (80-110); HEMOLYSIS < 15 (0-50); Potassium 3.5 mmol/L (3.4-5.1); Sodium 138 mmol/L (137-145); Total Protein 5.6 g/dL (6.3-8.2)
[2022-12-23 14:21] LABS: Add Manual Diff / Slide Review YES
[2022-12-23 14:42] LABS: Neutrophils Absolute Manual 2829 /uL (3000-5900); Total Cells Counted 100
[2022-12-23 14:44] LABS: Macrocytosis 1+
[2022-12-23] MEDS: MORPHINE 4 MG/ML INJ IV (15:14)
[2022-12-23 16:45] LABS: Magnesium 1.8 mg/dL (1.6-2.3)
[2022-12-23] MEDS: HYDROMORPHONE 0.5 MG INJ IV (17:27)
[2022-12-23] MEDS: SODIUM CHLORIDE 0.9% 1,000 ML 75 ML IV (17:28)
[2022-12-23] MEDS: ENOXAPARIN 40 MG/0.4 ML SYRINGE SUBCUT (17:43)
--- NOTE | 2022-12-23 17:56 | PM.HP.1 ---
History of Present Illness History of Present Illness Date Patient Seen: 12/23/22 Chief complaint: Fall, hit head, Rt. hip pain with shortening. Narrative: Can cope is a 72-year-old male with past medical history of lymphoma currently on treatment, essential tremor and depression who presents with right hip fracture after being knocked over by his dog. Patient states he landed on his right hip and had immediate pain. His pain is currently manageable as long as he doesn't move his hip. He also struck his head when he fell but did not lose consciousness. [facility] Social History household members: none Smoking Status: Former smoker alcohol intake: never Meds Home Medications and Allergies Home Medications Medication Instructions Recorded Confirmed Type citalopram 40 mg tablet 40 mg PO DAILY 07/04/19 07/04/19 History gabapentin 300 mg capsule 600 mg PO TID 07/04/19 07/04/19 History pantoprazole 20 mg tablet,delayed 40 mg PO DAILY 07/04/19 07/04/19 History release (Protonix) primidone 250 mg tablet 250 mg PO DAILY 07/04/19 07/04/19 History propranolol 80 mg tablet 80 mg PO DAILY 07/04/19 07/04/19 History Allergies Allergy/AdvReac Type Severity Reaction Status Date / Time haloperidol Allergy Severe Hallucinati Verified 07/04/19 12:49 ng Penicillins Allergy Severe swelling Verified 07/04/19 12:50 Review of Systems Review of Systems Narrative: All other systems reviewed with the patient and are negative unless otherwise stated. Exam Vital Signs (past 8 hours): - 12/23/22 13:28 12/23/22 13:16 12/23/22 13:19 Temperature 97.5 F L Pulse Rate 66 67 Respiratory Rate 16 Blood Pressure 112/58 L 112/58 L Pulse Oximetry 100 99 Oxygen Delivery Method Room Air 12/23/22 13:19 12/23/22 13:30 12/23/22 14:00 Temperature Pulse Rate 66 65 63 Respiratory Rate 12 9 L Blood Pressure Pulse Oximetry 99 99 100 Oxygen Delivery Method 12/23/22 14:30 12/23/22 15:00 12/23/22 15:30 Temperature Pulse Rate 61 59 L 59 L Respiratory Rate 11 L 19 13 Blood Pressure Pulse Oximetry 99 96 97 Oxygen Delivery Method 12/23/22 16:00 12/23/22 16:30 12/23/22 17:00 Temperature Pulse Rate 62 61 65 Respiratory Rate 17 13 17 Blood Pressure Pulse Oximetry 97 97 Oxygen Delivery Method 12/23/22 17:06 12/23/22 17:43 Temperature 98.2 F Pulse Rate 62 Respiratory Rate 16 Blood Pressure 121/61 103/58 L Pulse Oximetry 100 Oxygen Delivery Method Oxygen Delivery Method Room Air Narrative Exam Narrative: GEN: cachectic appearing male, speaks slowly HEENT: dry mucous membranes, PERRL NECK: trachea midline, no JVD CV: regular rate and rhythm, no murmurs PULM: clear bilaterally ABD: soft, nontender, nondistended, no organomegaly EXT: RLE externally rotated and with pain in right hip to palpation NEURO: awake, alert, oriented, no focal deficits Objective Labs 12/23/22 13:45 12/23/22 13:45 Labs: Laboratory Results - last 24 hr 12/23/22 12/23/22 12/23/22 13:42 13:45 13:45 WBC 4.1 L RBC 2.82 L Hgb 10.0 L Hct 29.2 L MCV 103.5 H MCH 35.5 H MCHC 34.3 RDW 13.5 Plt Count 165 Neut % (Auto) Not Reportable Lymph % (Auto) Not Reportable [place] % (Auto) Not Reportable Eos % (Auto) Not Reportable Baso % (Auto) Not Reportable Lymph # (Auto) Not Reportable [place] # (Auto) Not Reportable Baso # (Auto) Not Reportable Total Counted 100 Seg Neutrophils % 53.0 Band Neutrophils % 16.0 H Lymphocytes % (Manual) 6.0 L Monocytes % (Manual) 13.0 H Eosinophils % (Manual) 1.0 L Metamyelocytes % 11.0 H Neutrophils # (Manual) 2829 L RBC Morphology See below Macrocytosis 1+ H PT 13.2 H INR 1.2 Sodium Potassium Chloride Carbon Dioxide BUN Creatinine Estimated GFR BUN/Creatinine Ratio Glucose Calcium Magnesium Total Bilirubin AST ALT Alkaline Phosphatase Total Protein Albumin Globulin Albumin/Globulin Ratio Blood Type A Positive Antibody Screen Negative 12/23/22 12/23/22 13:45 13:45 WBC RBC Hgb Hct MCV MCH MCHC RDW Plt Count Neut % (Auto) Lymph % (Auto) [place] % (Auto) Eos % (Auto) Baso % (Auto) Lymph # (Auto) [place] # (Auto) Baso # (Auto) Total Counted Seg Neutrophils % Band Neutrophils % Lymphocytes % (Manual) Monocytes % (Manual) Eosinophils % (Manual) Metamyelocytes % Neutrophils # (Manual) RBC Morphology Macrocytosis PT INR Sodium 138 Potassium 3.5 Chloride 106 Carbon Dioxide 25 BUN 13 Creatinine 0.98 Estimated GFR > 60 BUN/Creatinine Ratio 13.3 Glucose 103 Calcium 8.9 Magnesium 1.8 Total Bilirubin 0.4 AST 21 ALT 17 Alkaline Phosphatase 46 Total Protein 5.6 L Albumin 3.5 Globulin 2.1 Albumin/Globulin Ratio 1.7 Blood Type Antibody Screen Assessment & Plan Assessment & Plan narrative: # right hip fracture -patient knocked over by his dog and fell on right hip, now with intertrochanteric fracture -Dr. Recinos ortho consulted and plan for surgery on 12/24 -NPO at midnight -pain control -will likely need SNF # ground level fall -struck head on the ground, CT head negative -IVF as appears dry on exam -PT/OT consult # lymphoma -follows with cedric Stewart oncologist and currently in active survelliance and not on treatment -CT abd with substantial decrease in large retroperitoneal mass which was due to his lymphoma -he is clear for surgery from lymphoma standpoint # essential tremor -continue home primidone -hold home propranolol due to soft blood pressure # depression -continue home citalopram # likely malnutrition and osteoporosis -associate professor physician consult to assess level of malnutrition Code status is full code. DVT prophylaxis with lovenox. Proxy is brother Jeff. I have reviewed home meds and used all available resources to reconcile the home meds. This patient will be admitted as inpatient and will require greater than 2 midnights of hospital time to treat hip fracture.
[2022-12-23] MEDS: OXYCODONE IR 10 MG TABLET PO (19:09)
--- NOTE | 2022-12-23 19:43 | PC.NURSE ---
Pt arrived to Room 217 at 1715 this evening. He appears very frail and thin. A&OX4, VSS, afebrile on RA. Pain 7-10/10 with movement and at rest he reports 3-5/10 pain to R hip. He is able to eat about 25 % of meal. Dial placed with difficulty, using 14 armenian coude. Brother at bedside supportive. Patient oriented to room and unit routine. IVF NS @ 75 ml/.hr. Continuous monitoring NPO after midnight.
[2022-12-23] MEDS: GABAPENTIN 300 MG CAPSULE 600 MG PO (20:18)
--- NOTE | 2022-12-23 22:05 | PC.NURSE ---
Patient is alert and oriented. Breath sounds CTA with RA sat of 100%. HRR. BP soft at 103/51. Denies nausea. BT present and abdomen is soft/flat. Indwelling catheter is patent; urine is clear yellow. Unable to reposition himself related to pain from fx right hip. Is repositioned q2h using tilt function on bed. Right LE is shortened and externally rotated. States pain is only 2-3/10 but exacerbated with movement. Wearing bilateral calf SCD's. Fall risk score is high and bed alarm is activated.
[2022-12-23] MEDS: LACTATED RINGERS 1,000 ML 75 ML IV (23:54)
[2022-12-24] VITALS (24 sets, daily range): BP systolic 82–115; BP diastolic 47–62; PULSE 63–76; RESP 10–18; TEMP 36.2–37.5; O2SAT 95–100; BMI 16.5
--- NOTE | 2022-12-24 | DI.RAD.S_ITS ---
PROCEDURE: XR HIP W PEL IF DONE RT 2V INDICATIONS: RT HIP ORIF TECHNIQUE: 4 views of the hip were acquired. COMPARISON: [facility], CR, XR HIP W PEL IF DONE RT 2V, 12/23/2022, 14:36. FINDINGS: 4 intraoperative fluoroscopic images of the proximal right femur demonstrate interval open reduction and internal fixation of intertrochanteric fracture using anterograde intramedullary angelina and dynamic compression screw fixation. IMPRESSION: Intraoperative fluoroscopic support for ORIF of right femoral neck fracture. Please see separate procedure note for further details. Dictated by: Filiberto Alegre M.D. on 12/24/2022 at 12:36 Approved by: Filiberto Alegre M.D. on 12/24/2022 at 12:38
[2022-12-24 04:37] LABS: BUN Creatinine Ratio 14.8 (6-22); Blood Urea Nitrogen 12 mg/dL (9-20); Calcium 8.5 mg/dL (8.4-10.2); Carbon Dioxide 24 mmol/L (22-32); Chloride 108 mmol/L (98-107); Estimated Glomerular Filt Rate > 60 mL/min (>60); Glucose 110 mg/dL (80-110); HEMOLYSIS < 15 (0-50); Potassium 3.9 mmol/L (3.4-5.1); Sodium 136 mmol/L (137-145)
[2022-12-24 04:51] LABS: Hematocrit 25.9 % (41-53); Hemoglobin 8.8 g/dL (13.5-17.5); Mean Corpuscular HGB Conc 33.9 % (30-36); Mean Corpuscular Hemoglobin 35.1 PG (26-34); Mean Corpuscular Volume 103.6 fL (80-100); Platelet Count 139 X10^3/uL (150-400); Red Cell Distribution Width 13.4 % (11.6-14.8); White Blood Cell Count 4.5 X10^3/uL (4.5-11.0)
[2022-12-24 04:57] LABS: Add Manual Diff / Slide Review YES
[2022-12-24 05:33] LABS: Neutrophils Absolute Manual 3240 /uL (3000-5900); Total Cells Counted 100
--- NOTE | 2022-12-24 07:23 | P.PN_ITS ---
Subjective Subjective Interval history: Patient doing well after surgery and his pain is much better. Exam Vital Signs (past 8 hours): - 12/24/22 00:00 12/24/22 05:54 Temperature 97.6 F 98.8 F Pulse Rate 63 68 Respiratory Rate 16 17 Blood Pressure 92/53 L 99/56 L Pulse Oximetry 97 97 Oxygen Flow Rate 0 0 Oxygen Delivery Method Room Air Oxygen Flow Rate 0 Narrative Exam Narrative: GEN: cachectic appearing male, speaks slowly HEENT: dry mucous membranes, PERRL NECK: trachea midline, no JVD CV: regular rate and rhythm, no murmurs PULM: clear bilaterally ABD: soft, nontender, nondistended, no organomegaly EXT: postop hip dressing in place NEURO: awake, alert, oriented, no focal deficits Objective Labs 12/24/22 03:55 12/24/22 03:55 Labs: Laboratory Results - last 24 hr 12/23/22 12/23/22 12/23/22 13:42 13:45 13:45 WBC 4.1 L RBC 2.82 L Hgb 10.0 L Hct 29.2 L MCV 103.5 H MCH 35.5 H MCHC 34.3 RDW 13.5 Plt Count 165 Neut % (Auto) Not Reportable Lymph % (Auto) Not Reportable [place] % (Auto) Not Reportable Eos % (Auto) Not Reportable Baso % (Auto) Not Reportable Lymph # (Auto) Not Reportable [place] # (Auto) Not Reportable Baso # (Auto) Not Reportable Total Counted 100 Seg Neutrophils % 53.0 Band Neutrophils % 16.0 H Lymphocytes % (Manual) 6.0 L Monocytes % (Manual) 13.0 H Eosinophils % (Manual) 1.0 L Metamyelocytes % 11.0 H Neutrophils # (Manual) 2829 L RBC Morphology See below Microcytosis Macrocytosis 1+ H PT 13.2 H INR 1.2 Sodium Potassium Chloride Carbon Dioxide BUN Creatinine Estimated GFR BUN/Creatinine Ratio Glucose Calcium Magnesium Total Bilirubin AST ALT Alkaline Phosphatase Total Protein Albumin Globulin Albumin/Globulin Ratio Blood Type A Positive Antibody Screen Negative 12/23/22 12/23/22 12/24/22 13:45 13:45 03:55 WBC 4.5 RBC 2.50 L Hgb 8.8 L Hct 25.9 L MCV 103.6 H MCH 35.1 H MCHC 33.9 RDW 13.4 Plt Count 139 L Neut % (Auto) Not Reportable Lymph % (Auto) Not Reportable [place] % (Auto) Not Reportable Eos % (Auto) Not Reportable Baso % (Auto) Not Reportable Lymph # (Auto) Not Reportable [place] # (Auto) Not Reportable Baso # (Auto) Not Reportable Total Counted 100 Seg Neutrophils % 61.0 Band Neutrophils % 11.0 H Lymphocytes % (Manual) 17.0 L Monocytes % (Manual) 8.0 Eosinophils % (Manual) Metamyelocytes % 3.0 H Neutrophils # (Manual) 3240 RBC Morphology See below Microcytosis 1+ H Macrocytosis PT INR Sodium 138 Potassium 3.5 Chloride 106 Carbon Dioxide 25 BUN 13 Creatinine 0.98 Estimated GFR > 60 BUN/Creatinine Ratio 13.3 Glucose 103 Calcium 8.9 Magnesium 1.8 Total Bilirubin 0.4 AST 21 ALT 17 Alkaline Phosphatase 46 Total Protein 5.6 L Albumin 3.5 Globulin 2.1 Albumin/Globulin Ratio 1.7 Blood Type Antibody Screen 12/24/22 03:55 WBC RBC Hgb Hct MCV MCH MCHC RDW Plt Count Neut % (Auto) Lymph % (Auto) [place] % (Auto) Eos % (Auto) Baso % (Auto) Lymph # (Auto) [place] # (Auto) Baso # (Auto) Total Counted Seg Neutrophils % Band Neutrophils % Lymphocytes % (Manual) Monocytes % (Manual) Eosinophils % (Manual) Metamyelocytes % Neutrophils # (Manual) RBC Morphology Microcytosis Macrocytosis PT INR Sodium 136 L Potassium 3.9 Chloride 108 H Carbon Dioxide 24 BUN 12 Creatinine 0.81 Estimated GFR > 60 BUN/Creatinine Ratio 14.8 Glucose 110 Calcium 8.5 Magnesium Total Bilirubin AST ALT Alkaline Phosphatase Total Protein Albumin Globulin Albumin/Globulin Ratio Blood Type Antibody Screen [facility] Medical History Depression Hypotension Lymphoma Malnutrition Tremor Surgical History H/O abdominal surgery History of spinal surgery History of urologic surgery S/P emergency tracheotomy for assistance in breathing (~195) Social History household members: none Smoking Status: Former smoker alcohol intake: never Assessment & Plan Assessment & Plan narrative: # right hip fracture -patient knocked over by his dog and fell on right hip, now with intertrochanteric fracture -Dr. Grisel davis consulted and took for surgery on 12/24 -pain control -PT/OT evals, will likely need SNF # ground level fall -got knocked over by his dog and struck head on the ground, CT head negative -IVF as appears dry on exam -PT/OT consult as above # lymphoma -follows with cedric Stewart oncologist and currently in active survelliance and not on treatment -CT abd with substantial decrease in large retroperitoneal mass which was due to his lymphoma -he is clear for surgery from lymphoma standpoint # essential tremor -continue home primidone -hold home propranolol due to soft blood pressure # depression -continue home citalopram, seroquel and topomax # likely malnutrition and osteoporosis -traffic sign erection supervisor consult to assess level of malnutrition Code status is full code. DVT prophylaxis with lovenox. Proxy is brother Jeff. Dispo: Pending PT/OT evals and possible SNF. Quality VTE Deep Vein Thrombosis/Pulmonary Embolism Present on Admission: No
[2022-12-24] MEDS: LACTATED RINGERS 1,000 ML 75 ML IV (09:25)
--- NOTE | 2022-12-24 09:49 | PM.CN ---
History of Present Illness Consult details Date Patient Seen: 12/24/22 Time Patient Seen: 09:49 Chief complaint: Fall, hit head, Rt. hip pain with shortening. Reason for consult: hip pain Requesting provider: Anabell Cancino Narrative: Mr. Daniels is a 72 yo M with history of fall yesterday when his neighbor's dog knocked him down. He fell from standing and was not able to ambulate after the fall. Patient was admitted to the ER with x-ray showing a displaced angulated right femur intertrochanteric fracture. Orthopedic service was consulted for management. Meds Home Medications and Allergies Home Medications Medication Instructions Recorded Confirmed Type citalopram 40 mg tablet 40 mg PO DAILY 07/04/19 12/24/22 History gabapentin 300 mg capsule 600 mg PO TID 07/04/19 12/24/22 History pantoprazole 20 mg tablet,delayed 40 mg PO DAILY 07/04/19 12/24/22 History release (Protonix) primidone 250 mg tablet 250 mg PO DAILY 07/04/19 12/24/22 History propranolol 80 mg tablet 20 mg PO BID 07/04/19 12/24/22 History potassium chloride 20 mEq 20 meq PO BID 12/24/22 12/24/22 History tablet,extended release quetiapine 50 mg tablet 50 mg PO BEDTIME 12/24/22 12/24/22 History topiramate 100 mg BEDTIME 12/24/22 12/24/22 History Allergies Allergy/AdvReac Type Severity Reaction Status Date / Time haloperidol Allergy Severe Hallucinati Verified 07/04/19 12:49 ng Penicillins Allergy Severe swelling Verified 07/04/19 12:50 Review of Systems Review of Systems ROS: Yes All systems reviewed with the patient and are negative except as otherwise documented Exam Vital Signs (past 8 hours): - 12/24/22 05:54 12/24/22 09:06 Temperature 98.8 F 99.5 F Pulse Rate 68 69 Respiratory Rate 17 16 Blood Pressure 99/56 L 102/56 L Pulse Oximetry 97 97 Oxygen Delivery Method Room Air Oxygen Flow Rate 0 Oxygen Delivery Method Room Air Oxygen Flow Rate 0 Extrem Other: RLE is shortened and externally rotated, pain at right groin with any movement Objective Labs 12/24/22 03:55 12/24/22 03:55 Labs: Laboratory Results - last 24 hr 12/23/22 12/23/22 12/23/22 13:42 13:45 13:45 WBC 4.1 L RBC 2.82 L Hgb 10.0 L Hct 29.2 L MCV 103.5 H MCH 35.5 H MCHC 34.3 RDW 13.5 Plt Count 165 Neut % (Auto) Not Reportable Lymph % (Auto) Not Reportable [place] % (Auto) Not Reportable Eos % (Auto) Not Reportable Baso % (Auto) Not Reportable Lymph # (Auto) Not Reportable [place] # (Auto) Not Reportable Baso # (Auto) Not Reportable Total Counted 100 Seg Neutrophils % 53.0 Band Neutrophils % 16.0 H Lymphocytes % (Manual) 6.0 L Monocytes % (Manual) 13.0 H Eosinophils % (Manual) 1.0 L Metamyelocytes % 11.0 H Neutrophils # (Manual) 2829 L RBC Morphology See below Microcytosis Macrocytosis 1+ H PT 13.2 H INR 1.2 Sodium Potassium Chloride Carbon Dioxide BUN Creatinine Estimated GFR BUN/Creatinine Ratio Glucose Calcium Magnesium Total Bilirubin AST ALT Alkaline Phosphatase Total Protein Albumin Globulin Albumin/Globulin Ratio Blood Type A Positive Antibody Screen Negative 12/23/22 12/23/22 12/24/22 13:45 13:45 03:55 WBC 4.5 RBC 2.50 L Hgb 8.8 L Hct 25.9 L MCV 103.6 H MCH 35.1 H MCHC 33.9 RDW 13.4 Plt Count 139 L Neut % (Auto) Not Reportable Lymph % (Auto) Not Reportable [place] % (Auto) Not Reportable Eos % (Auto) Not Reportable Baso % (Auto) Not Reportable Lymph # (Auto) Not Reportable [place] # (Auto) Not Reportable Baso # (Auto) Not Reportable Total Counted 100 Seg Neutrophils % 61.0 Band Neutrophils % 11.0 H Lymphocytes % (Manual) 17.0 L Monocytes % (Manual) 8.0 Eosinophils % (Manual) Metamyelocytes % 3.0 H Neutrophils # (Manual) 3240 RBC Morphology See below Microcytosis 1+ H Macrocytosis PT INR Sodium 138 Potassium 3.5 Chloride 106 Carbon Dioxide 25 BUN 13 Creatinine 0.98 Estimated GFR > 60 BUN/Creatinine Ratio 13.3 Glucose 103 Calcium 8.9 Magnesium 1.8 Total Bilirubin 0.4 AST 21 ALT 17 Alkaline Phosphatase 46 Total Protein 5.6 L Albumin 3.5 Globulin 2.1 Albumin/Globulin Ratio 1.7 Blood Type Antibody Screen 12/24/22 03:55 WBC RBC Hgb Hct MCV MCH MCHC RDW Plt Count Neut % (Auto) Lymph % (Auto) [place] % (Auto) Eos % (Auto) Baso % (Auto) Lymph # (Auto) [place] # (Auto) Baso # (Auto) Total Counted Seg Neutrophils % Band Neutrophils % Lymphocytes % (Manual) Monocytes % (Manual) Eosinophils % (Manual) Metamyelocytes % Neutrophils # (Manual) RBC Morphology Microcytosis Macrocytosis PT INR Sodium 136 L Potassium 3.9 Chloride 108 H Carbon Dioxide 24 BUN 12 Creatinine 0.81 Estimated GFR > 60 BUN/Creatinine Ratio 14.8 Glucose 110 Calcium 8.5 Magnesium Total Bilirubin AST ALT Alkaline Phosphatase Total Protein Albumin Globulin Albumin/Globulin Ratio Blood Type Antibody Screen PFSH Medical History Depression Hypotension Lymphoma Malnutrition Tremor Surgical History H/O abdominal surgery History of spinal surgery History of urologic surgery S/P emergency tracheotomy for assistance in breathing (~195) Social History household members: none Tobacco & Substance Use Smoking Status: Former smoker alcohol intake: never Assessment & Plan Assessment & Plan narrative: Patient has right femur IT fx. I discussed treatment options with risks and benefits. Risks for surgery include but not limited to bleeding, infection, nerve/blood vessel injury, need for blood transfusion, additional fracture, need for additional procedure, malunion, nonunion, pain, even . Patient understands and would like to proceed with surgery treatment. Patient is consented for open reduction internal fixation of his right femur fracture using an intramedullary device.
[2022-12-24] MEDS: CLINDAMYCIN 600 MG/50 ML PIGGYBACK 50 MG IV (09:53)
--- NOTE | 2022-12-24 09:56 | P.OP_ITS ---
Operative Date/Time/Diagnoses Date of procedure: 12/24/22 Pre-op diagnosis: right femur intertrochanteric fracture Post-op diagnosis: same Procedure & Clinicians Procedure: right femur open reduction internal fixation with intramedullar device Same procedure as scheduled: Yes Indications: Mr. Matos fell yesterday and sustained a displaced angulated intertrochanteric femur fx on the right. After informed consent was given, patient is scheduled for urgent surgery treatment. Surgeon: Ervin Recinos Click Yes if Unassisted: No Anesthesia Type: General Operative Notes Closure Type: primary Prosthetic devices, grafts, tissues, transplants, or devices: S&N intertan IMN Applied: catheter Blood products transfused: none Procedure in detail: Patient was seen in the preoperative area. Risks and benefits of the surgery was discussed with the patient. Informed consent was obtained from the patient and placed in the chart. Surgical site was marked. Patient was taken to the operative room. General anesthesia was administered. Prophylactic antibiotic was given to the patient less than 30 min before the incision was made. Patient was placed into a supine position on the fracture table. Patient's hip was then prepped and draped in the sterile fashion. Time-out was performed at this time. Using the fracture table, a closed reduction maneuver was performed to the right proximal femur fracture. This was done by distracting internally rotating and adducting the right hip. After the fracture reduction was completed and confirmed with AP and lateral C-arm imaging, Patient's hip was then prepped and draped in the sterile fashion. A 3 in incision just proximal to the greater trochanter was made on the lateral aspect of the patient's hip. Starting guidewire was inserted through the incision onto the greater trochanter. The guidewire was driven into the intramedullary canal and confirmed with AP and lateral C-arm imaging. The canal opening Reamer was used to open the canal from the proximal to distal fashion. A 11 mm 130 degree nail was assembled on the back table and inserted into the mid intramedullary canal from a proximal distal fashion. The lateral targeting guide was used to place the cephalomedullary device by placing a lateral incision after targeting guide was used to measure the location of the incision. The fascia was incised in line with skin incision the targeting guide was inserted and docked onto the lateral aspect of the lateral cortex of the proximal femur and a guidewire was drilled through the lateral cortex into the femoral head through the femoral neck in the center location on both AP and lateral imaging. Depth gauge was used to measure the length of the cephalomedullary device a 95 mm cephalomedullary piece was chosen and placed through the lateral cortex into the femoral head through the IM nail. A distal locking screw was then placed using the same targeting guide after drilling in bicortical fashion. Depth gauge was used to measure the length. 35 mm screw was inserted. After all the hardware was placed, AP and lateral C-arm imaging was used to co nfirm placement of the hardware and reduction of the fracture. Good placement of the hardware and good reduction of the fracture was confirmed. The wound was then irrigated with sterile normal saline. The deep fascia was closed with 1-0 Vicryl, subcutaneous tissue was closed with 2-0 Vicryl and skin was closed with skin roberto. Sterile dressing was applied the patient's skin and patient was woken up from sedation and transferred to recovery room stable condition. Patient can start progressing WBAT to his RLE starting tomorrow with PT. Complications: none Post-operative Condition: stable Disposition: PACU Plan for aftercare: Admit to inpatient hospital
--- NOTE | 2022-12-24 10:14 | SLP.IPNOTE ---
JAVA SOFTWARE DEVELOPER checked in with nurse Nona this AM re: pt 217 and the speech orders in place. Per Nona, the pt is not in need of ST at this time. The pt is currently in surgery this morning as well. Reported information at rounds and doctor was on board with removing speech orders at this time.
[2022-12-24] MEDS: BUPIVACAINE 0.5% INJ (10:42)
[2022-12-24] MEDS: EPINEPHRINE 0.15 MG INJ (10:42)
--- NOTE | 2022-12-24 10:48 | SUR.OPER ---
Supine on padded [place] table with bilateral legs secured in padded positioning boots and suspended in positioning spars, Bilateral feet wrapped with cast padding then coban then placed in traction boots, operative leg in traction per surgeon. Head on one pillow. Arm on non-operative side secured on padded armboard <90 degrees abduction. Arm on operative side padded and resting across chest then secured with tape over sheet. Padded perineal post in place per surgeon. Urinary catheter left in place.
[2022-12-24] MEDS: HYDROMORPHONE 0.5 MG INJ IV (13:55)
--- NOTE | 2022-12-24 14:31 | CM.DANOTE ---
DCP: Chart review for case, met with patient at bedside, they agree to case management assessment. Completed DCP assessment based on information available. Patient is 72 year old admitted for hip fracture and now POD #0 ORIF R hip with Dr. Recinos. Relays that it was not his dog, but one in a the parking lot of his apt [facility] that tripped him. Confirms that he lives alone, does not drive and his brother Jeff whom he states lives in [place] is a support to him with shopping and appts. Pt drifting back to sleep during assessment. CM team will continue discussion later to learn preferences for likely SNF need. Patient is pale, cachectic with indicators for malnutrition. Resources to bedside for patient and review by brother Jeff. PCP: [facility] for [facility] Payer: NAV/ [employer] DME: [employer] DCP: Plan A SNF/ Plan B home with HH PT and family 26/12 support Racheal Pat RN CM Discharge Planning/Care Management CM Discharge Assessment Start: 12/24/22 14:16 Freq: Status: Active Protocol: Document 12/24/22 14:16 BQ (Rec: 12/24/22 14:23 BQ [id number]) Discharge Planning Assessment Assigned Ste[facility] House Supervisor Racheal Pat RN CM DPOA/Assigned Designee Name Brother Jeff Michele Advance Directives? No Advance Directives on File No History Provided By Patient,Medical Record Has Patient been admitted in last 30 No days? Prior Living Arrangements Apartment/Condo Household Members none Type of transporation used prior to Relies on Others admit Independent with ADL's Yes Is patient alert and oriented? Yes Needs Assistance With Meal Prep,Home Chores / Shopping Caregiver for Another No Patient/Family Preference Halfway Facility Barriers to Discharge No Discharge Plan Halfway Facility Referrals Initiated Halfway Additional Comment CM team will initiate after PT /OT eval If patient plan is SNF: Has PASSR been Yes completed? Inpatient Status as of 12/23/22 Medicare Choice List Provided Yes Medicare choice list reviewed on patient electronic tablet with SNF/HH Preference Patient awaiting brother to arrive to review Whiteboard Updated in Patient Room with Yes name and ext. # of Steffen House Supervisor Review Status In Process Next Review Type Continued Stay Review
[2022-12-24] MEDS: GABAPENTIN 300 MG CAPSULE 600 MG PO ×2 (16:41→20:15)
[2022-12-24] MEDS: ASPIRIN EC 81 MG TABLET PO (20:15)
[2022-12-24] MEDS: QUETIAPINE 25 MG TABLET 50 MG PO (20:15)
[2022-12-24] MEDS: POTASSIUM CHLORIDE 20 MEQ TAB PO (20:15)
[2022-12-24] MEDS: TOPIRAMATE 100 MG TABLET PO (20:15)
[2022-12-24] MEDS: SODIUM CHLORIDE 0.9% 1,000 ML 1000 ML IV (21:10)
[2022-12-24] MEDS: SODIUM CHLORIDE 0.9% 1,000 ML 100 ML IV (22:21)
[2022-12-25] VITALS (8 sets, daily range): BP systolic 88–105; BP diastolic 49–61; PULSE 65–83; RESP 18; TEMP 36.2–37; O2SAT 97–99
[2022-12-25] MEDS: SODIUM CHLORIDE 0.9% 500 ML IV (00:03)
--- NOTE | 2022-12-25 00:11 | PC.NURSE ---
Patient is alert and oriented. Breath sounds CTA with RA sat of 97%. HRR but has low BP. On left arm BP was 81/50 with MAP of 58 and on right arm was 82/48 with MAP of 59. Hospitalist was informed and fluid bolus and maintenance IVF was ordered. After bolus BP was 90/47 (MAP 59) on left and 89/47 (MAP 91) on right. After an additional hour BP was 85/48 (MAP 60) on left arm and 87/47 (MAP 59) on right arm so hospitalist again informed and currently has 500cc bolus infusing and then IVF rate will increase to 125cc/h; patient denies dizziness stating he only just tired. Denies nausea. BT present but denies flatus as yet. Indwelling catheter is patent and urine is cloudy, dark ermias with pink tinge in tubing. Is needing to be repositioned q2h as not moving himself. Has not yet been out of bed and will be seeing PT in the morning. States pain in right hip is 2/10 but is exacerbated with movement but declines pain medication; ice pack being used for comfort. Dressing to right hip is CDI. CMS is intact except patient is unable to lift right leg off bed. Is wearing bilateral calf SCD's. Fall risk score is high and bed alarm is activated.
[2022-12-25 05:42] LABS: Macrocytosis 1+
[2022-12-25] MEDS: SODIUM CHLORIDE 0.9% FLUSH 10 ML IV (05:58)
[2022-12-25] MEDS: SODIUM CHLORIDE 0.9% 1,000 ML 125 ML IV (06:09)
[2022-12-25 06:24] LABS: Hematocrit 23.1 % (41-53); Hemoglobin 7.8 g/dL (13.5-17.5); Mean Corpuscular Volume 102.9 fL (80-100); Platelet Count 116 X10^3/uL (150-400); Red Blood Cell Count 2.24 X10^6/uL (4.5-5.9); Red Cell Distribution Width 13.2 % (11.6-14.8); White Blood Cell Count 4.4 X10^3/uL (4.5-11.0)
[2022-12-25 06:25] LABS: Add Manual Diff / Slide Review YES
[2022-12-25 06:32] LABS: BUN Creatinine Ratio 15.6 (6-22); Blood Urea Nitrogen 12 mg/dL (9-20); Calcium 8.1 mg/dL (8.4-10.2); Carbon Dioxide 24 mmol/L (22-32); Chloride 108 mmol/L (98-107); Estimated Glomerular Filt Rate > 60 mL/min (>60); Glucose 103 mg/dL (80-110); HEMOLYSIS < 15 (0-50); Potassium 4.1 mmol/L (3.4-5.1); Sodium 136 mmol/L (137-145)
[2022-12-25 06:34] LABS: Neutrophils Absolute Manual 3168 /uL (3000-5900); Total Cells Counted 100
[2022-12-25 06:35] LABS: Macrocytosis 1+; Platelet Estimate Decreased on smear
[2022-12-25] MEDS: ASPIRIN EC 81 MG TABLET PO ×2 (09:45→20:31)
[2022-12-25] MEDS: GABAPENTIN 300 MG CAPSULE 600 MG PO ×3 (09:45→20:31)
[2022-12-25] MEDS: CITALOPRAM 10 MG TABLET 40 MG PO (09:45)
[2022-12-25] MEDS: PRIMIDONE 50 MG TABLET 250 MG PO (09:46)
[2022-12-25] MEDS: PANTOPRAZOLE DR 20 MG TABLET 40 MG PO (09:46)
[2022-12-25] MEDS: POTASSIUM CHLORIDE 20 MEQ TAB PO ×2 (09:46→20:32)
--- NOTE | 2022-12-25 11:39 | P.PN_ITS ---
Exam Vital Signs (past 8 hours): - 12/25/22 05:52 12/25/22 11:35 Temperature 97.2 F L 98.5 F Pulse Rate 68 80 Respiratory Rate 18 18 Blood Pressure 103/55 L 97/54 L Pulse Oximetry 99 99 Oxygen Flow Rate 0 0 Oxygen Delivery Method Room Air Oxygen Flow Rate 0 Objective Labs 12/25/22 06:03 12/25/22 06:03 Labs: Laboratory Results - last 24 hr 12/24/22 12/25/22 12/25/22 03:55 06:03 06:03 WBC 4.4 L RBC 2.24 L Hgb 7.8 L Hct 23.1 L MCV 102.9 H MCH 35.0 H MCHC 34.0 RDW 13.2 Plt Count 116 L Neut % (Auto) Not Reportable Lymph % (Auto) Not Reportable [place] % (Auto) Not Reportable Eos % (Auto) Not Reportable Baso % (Auto) Not Reportable Lymph # (Auto) Not Reportable [place] # (Auto) Not Reportable Baso # (Auto) Not Reportable Total Counted 100 Seg Neutrophils % 65.0 Band Neutrophils % 7.0 Lymphocytes % (Manual) 9.0 L Monocytes % (Manual) 11.0 Metamyelocytes % 8.0 H Neutrophils # (Manual) 3168 Platelet Estimate Decreased on smear RBC Morphology See below Microcytosis Orthopedic Shoe Maker Macrocytosis 1+ H 1+ H Sodium 136 L Potassium 4.1 Chloride 108 H Carbon Dioxide 24 BUN 12 Creatinine 0.77 Estimated GFR > 60 BUN/Creatinine Ratio 15.6 Glucose 103 Calcium 8.1 L PFSH Medical History Depression Hypotension Lymphoma Malnutrition Tremor Surgical History H/O abdominal surgery History of spinal surgery History of urologic surgery S/P emergency tracheotomy for assistance in breathing (~1956) Social History household members: none Smoking Status: Former smoker alcohol intake: never Assessment & Plan Assessment & Plan narrative: Patient is admitted after surgery. POD#1 s/p R hip ORIF. Patient has been stable and progressing with physical therapy. Patient is neurovascularly intact on exam. Patient has no signs or symptoms of DVT. Patient's dressing is clean dry and intact. Plan for possible discharge tomorrow once cleared by PT/OT. Quality VTE Deep Vein Thrombosis/Pulmonary Embolism Present on Admission: No
--- NOTE | 2022-12-25 11:44 | PT.IIE ---
Current Diagnoses Fracture of unspecified part of neck of right femur, initial encounter for closed fracture (12/23/22) Surgery Performed Operation Date: 12/24/22 10:00 Actual Procedures p Intramedullary Nailing Femur(Right) - Ervin Recinos MD Operation Date: 12/24/22 16:00 <No data on this case meets the specified criteria> Surgical History (Last Reviewed 12/24/22 @ 09:51 by Ervin Recinos MD) H/O abdominal surgery History of spinal surgery History of urologic surgery S/P emergency tracheotomy for assistance in breathing (~1956) Medical History (Last Reviewed 12/24/22 @ 09:51 by Ervin Recinos MD) Depression Hypotension Lymphoma Malnutrition Tremor Physical Therapy Inpatient Evaluation/Re-Eval M1 PT/OT-IP Prior Functional Status Start: 12/25/22 11:26 Freq: NEEDED Status: Active Protocol: Document 12/25/22 11:26 [facility] (Rec: 12/25/22 11:40 [facility] [id number]) Medical Review Prior Functional Status Medical History Reviewed Yes Diet/Fluid Consistency Regular Mobility and Gait pt has been ambulating independently prior to his fall Activities of Daily Living and IADL's [place] alone in [place], his brother lives nearby and drives him to his appointments. Pt is stage 4 lymphoma Social History Household Members none Living Arrangements Apartment/Condo Number of Floors (Floors) One Floor Number of Stairs To Enter/Railing? none Home Environment Standard Height Toilet Additional Social History Comment see above M2 PT-IP Current Condition Start: 12/25/22 11:26 Freq: NEEDED Status: Active Protocol: Document 12/25/22 11:26 [facility] (Rec: 12/25/22 11:40 [facility] [id number]) Physical Therapy Current Condition Current Condition Evaluation Date 12/25/22 Treatment Diagnosis Right femur intertrochanteric fx with ORIF WBAT R Onset Date 12/24/22 M3 PT-IP Subjective Start: 12/25/22 11:26 Freq: NEEDED Status: Active Protocol: Document 12/25/22 11:26 [facility] (Rec: 12/25/22 11:40 [facility] [id number]) Subjective Physical Therapy Visit Type Type Initial Evaluation Visit Start Time 10:35 Visit Stop Time 11:25 Total Visit Minutes 50 Physical Therapy Visit Comments Patient Comments pt is finishing breakfast and agrees to PT. Pain is 2/10 in bed at rest Therapy Pain Assessment Pain When Pain Assessed At Rest Pain Present Pain Present Pain Reported Location R hip Intensity 2 M4 PT-IP Mobility and Gait Start: 12/25/22 11:26 Freq: NEEDED Status: Active Protocol: Document 12/25/22 11:26 [facility] (Rec: 12/25/22 11:40 [facility] [id number]) PT-Bed Mobility Assessment Rolling Type of Rolling Roll to Right Level of Assist Maximal Assistance Supine to Sit Supine to Sit Maximum Assistance,Head of Bed Elevated Sit to Supine Sit to Supine Maximum Assistance Scooting Scooting to Edge of Bed Moderate Assistance Scooting Up and Down in Bed Maximum Assistance PT-Transfer Assessment Sit to and From Stand Sit to and from Stand Moderate Assistance Equipment Transfer Assistive Device Gait Belt,Front Wheeled Walker Orthotic/Prosthetic Devices or Brace: No Transfers Transfer Destination Bedside Commode Transfer Technique pt ambulated to the bathroom and decided to use commode once in bathroom Transfer Ability Level of Assist Moderate Assistance Comments Mobility Comments transfer required many verbal cues and max assisit, pain levels increased to a 4 with bed mobility. We took it slow and pt tolerated it well but was not able to assist much at all. Once sitting his sit- stand with fww was mod A and he was able to stand on the first attempt Gait Assessment Gait Gait Assistance Required: Contact Guard Assist Distance (Feet) 10 Able to Maintain Weight Bearing Status Yes During Gait Assistive Devices Assistive Device Gait Belt,Front Wheeled Walker Orthotic/Prosthetic Devices or Brace: No Gait Deviations General Gait Pattern Decreased Stride Length,Step- to Gait Factors Limiting Gait Function Factors Limiting Gait Function Decreased Strength,Pain Comments Gait Comments pt is very shakey but he reports this is his norm, he was able to WBAT on the right LE and ambulated without a break into the bathroom. He decided to sit on the bedside commode once in the bathroom for the elevated seat. His gait was CGA and he sat on the commode with mod A. Pt was unable to have a bowel movement. Sit-stand on the commode was mod A. Pt was offered the bedside chair however he wished to ambulate back to bed. He ambulated back to bed with CGA. Transfer back to bed was max A PT-Balance Assessment Sitting Balance and Reactions Static Sitting Balance Ability Fair Dynamic Sitting Balance Ability Fair Standing Balance and Reactions Static Standing Balance Ability Fair Dynamic Standing Balance Ability Fair M5 PT-IP Objective Assessments Start: 12/25/22 11:26 Freq: NEEDED Status: Active Protocol: Document 12/25/22 11:26 [facility] (Rec: 12/25/22 11:40 [facility] [id number]) Orientation Orientation/Cognition Level of Alertness Alert Safety Awareness Understands Safety Issues Memory Description No Deficits Noted Gross Range of Motion Upper Extremity ROM Assessment Within Functional Limits Lower Extremity ROM Assessment Bilaterally Impaired Impairments pt notes that when attempting to move his left leg it hurts his right side so his ROM on the left was impaired today as well. He notes usually his motion is WNL Strength Upper Extremity Strength Assessment Within Functional Limits Lower Extremity Strength Assessment Bilaterally Impaired Muscle Tone Muscle Tone WNL Yes M6 PT-IP Treatment Start: 12/25/22 11:26 Freq: NEEDED Status: Active Protocol: Document 12/25/22 11:26 [facility] (Rec: 12/25/22 11:40 [facility] [id number]) Physical Therapy Treatment Exercises Exercises Ankle Pumps,Gluteal Sets,Quad Sets,Heel Slides,Supine Hip Abduction Knee ROM Measurement 80 Education Education Provided Weight Bearing Status,Post-Op Packet,Safety Other Treatments Other Treatment Performed post op exercises reviewed and completed 10 reps of each M7 PT-IP Assessment and Plan Start: 12/25/22 11:26 Freq: NEEDED Status: Active Protocol: Document 12/25/22 11:26 [facility] (Rec: 12/25/22 11:40 [facility] [id number]) PT Summary Assessment and Plan Potential Rehabilitation Potential Good Status of Condition at Evaluation Stable Summary Impairments Pain,ROM,Bed Mobility, Transfers,Gait,Activity Tolerance Assessment Summary 72 year old male day 1 post op right femur intertrochanteric ORIF after a fall. Pt notes he was outside when a neighbor 's dog greeted him and he was knocked over. He lives in [place] on a first floor apartment and lives alone. He has a brother who lives close by and is his vibratory pile driver. Pt currently has stage 4 lymphoma . He does walk 4 times around his parking lot on good days and on days that are not so good he ambulates in his apartment. Pt was willing to work with PT today. His pain levels were low at rest a 2/ 10 and increased to 4/10 with activity. He required max A for med mobility and transfers to the edge of the bed, mod A for sit-stand and was CGA for ambulation. He is quite shakey and he notes this is his norm. He will most likely require a stay at SNF for rehab. Goals Bed Mobility Goal Independent Transfer Goal Contact Guard Assistance Gait Goal Contact Guard Assistance Gait Distance 50 feet Days to Meet Goals 5 Frequency of Treatment Frequency Of Treatment Twice a Day Treatment Plan Physical Therapy Treatment Plan Bed Mobility Training,Transfer Training,Gait Training, Therapeutic Exercise,Post Op Education,Discharge Planning Other Recommendations and Next Treatment work on bed mobiity and Focus transfer training, increase gait distance with fww, encouage sitting up at bedside chair Precautions Other Precautions WBAT right LE Weight Bearing Status Weight Bearing Status Weight Bear as Tolerated Recommendations To Nursing Amount of Assist Needed 1 Person Assist Discharge Recommendations PT Discharge Recommendations SNF Rehab Transportation Needs at Discharge Wheelchair/Cabulance
--- NOTE | 2022-12-25 13:22 | P.PN_ITS ---
Subjective Subjective Interval history: Patient doing well after surgery, has pain, requesting a bit of an increase in pain medications if possible. Exam Vital Signs (past 8 hours): - 12/25/22 05:52 12/25/22 11:35 Temperature 97.2 F L 98.5 F Pulse Rate 68 80 Respiratory Rate 18 18 Blood Pressure 103/55 L 97/54 L Pulse Oximetry 99 99 Oxygen Flow Rate 0 0 Oxygen Delivery Method Room Air Oxygen Flow Rate 0 Narrative Exam Narrative: GEN: cachectic appearing male, speaks slowly HEENT: dry mucous membranes, PERRL NECK: trachea midline, no JVD CV: regular rate and rhythm, no murmurs PULM: clear bilaterally ABD: soft, nontender, nondistended, no organomegaly EXT: postop hip dressing in place NEURO: awake, alert, oriented, no focal deficits Objective Labs 12/25/22 06:03 12/25/22 06:03 Labs: Laboratory Results - last 24 hr 12/24/22 12/25/22 12/25/22 03:55 06:03 06:03 WBC 4.4 L RBC 2.24 L Hgb 7.8 L Hct 23.1 L MCV 102.9 H MCH 35.0 H MCHC 34.0 RDW 13.2 Plt Count 116 L Neut % (Auto) Not Reportable Lymph % (Auto) Not Reportable [place] % (Auto) Not Reportable Eos % (Auto) Not Reportable Baso % (Auto) Not Reportable Lymph # (Auto) Not Reportable [place] # (Auto) Not Reportable Baso # (Auto) Not Reportable Total Counted 100 Seg Neutrophils % 65.0 Band Neutrophils % 7.0 Lymphocytes % (Manual) 9.0 L Monocytes % (Manual) 11.0 Metamyelocytes % 8.0 H Neutrophils # (Manual) 3168 Platelet Estimate Decreased on smear RBC Morphology See below Microcytosis Clipper Machine Operator Macrocytosis 1+ H 1+ H Sodium 136 L Potassium 4.1 Chloride 108 H Carbon Dioxide 24 BUN 12 Creatinine 0.77 Estimated GFR > 60 BUN/Creatinine Ratio 15.6 Glucose 103 Calcium 8.1 L PFSH Medical History Depression Hypotension Lymphoma Malnutrition Tremor Surgical History H/O abdominal surgery History of spinal surgery History of urologic surgery S/P emergency tracheotomy for assistance in breathing (~1956) Social History household members: none Smoking Status: Former smoker alcohol intake: never Assessment & Plan Assessment & Plan narrative: # right femur fracture -patient knocked over by his dog and fell on right hip, now with intertrochanteric fracture -Dr. Grisel davis consulted and took for surgery on 12/24 -pain control -PT/OT evals, will likely need SNF # ground level fall -got knocked over by his dog and struck head on the ground, CT head negative -IVF provided initially can discontinue today. -PT/OT consult as above # lymphoma -follows with cedric Stewart oncologist and currently in active survelliance and not on treatment -CT abd with substantial decrease in large retroperitoneal mass which was due to his lymphoma # essential tremor -continue home primidone -hold home propranolol due to soft blood pressure # depression -continue home citalopram, seroquel and topomax # likely malnutrition and osteoporosis -civil engineering draftsperson consult to assess level of malnutrition Code status is full code. DVT prophylaxis with lovenox. Proxy is brother Jeff. Dispo: Pending PT/OT evals and probable SNF. Quality VTE Deep Vein Thrombosis/Pulmonary Embolism Present on Admission: No
--- NOTE | 2022-12-25 13:36 | PT.IPTN ---
Current Diagnoses Fracture of unspecified part of neck of right femur, initial encounter for closed fracture (12/23/22) Surgery Performed Operation Date: 12/24/22 10:00 Actual Procedures p Intramedullary Nailing Femur(Right) - Ervin Recinos MD Operation Date: 12/24/22 16:00 <No data on this case meets the specified criteria> Physical Therapy Treatment Note M2 PT-IP Current Condition Start: 12/25/22 11:26 Freq: NEEDED Status: Active Protocol: Document 12/25/22 11:26 AMH (Rec: 12/25/22 11:40 AMH [id number]) Physical Therapy Current Condition Current Condition Evaluation Date 12/25/22 Treatment Diagnosis Right femur intertrochanteric fx with ORIF WBAT R Onset Date 12/24/22 M3 PT-IP Subjective Start: 12/25/22 11:26 Freq: NEEDED Status: Active Protocol: Document 12/25/22 13:20 KS (Rec: 12/25/22 14:01 KS [id number]) Subjective Physical Therapy Visit Type Type Treatment Note Visit Start Time 13:20 Visit Stop Time 13:36 Total Visit Minutes 16 Number of BUFFET WAITER/WAITRESS Visits 1 Physical Therapy Visit Comments Patient Comments Pt agreeable, but reports fatigue and pain. M4 PT-IP Mobility and Gait Start: 12/25/22 11:26 Freq: NEEDED Status: Active Protocol: Document 12/25/22 13:20 KS (Rec: 12/25/22 14:01 KS [id number]) PT-Transfer Assessment Comments Mobility Comments Initiated assisting pt to side of bed but stopped per patients request due to high level of pain and fatigue. Pt did agree to and was able to complete LE exercises including ankle pumps, quad sets, glute sets, and heel slides. Pt left in bed w/ all needs in reach. M5 PT-IP Objective Assessments Start: 12/25/22 11:26 Freq: NEEDED Status: Active Protocol: Document 12/25/22 11:26 AMH (Rec: 12/25/22 11:40 AMH [id number]) Orientation Orientation/Cognition Level of Alertness Alert Safety Awareness Understands Safety Issues Memory Description No Deficits Noted Gross Range of Motion Upper Extremity ROM Assessment Within Functional Limits Lower Extremity ROM Assessment Bilaterally Impaired Impairments pt notes that when attempting to move his left leg it hurts his right side so his ROM on the left was impaired today as well. He notes usually his motion is WNL Strength Upper Extremity Strength Assessment Within Functional Limits Lower Extremity Strength Assessment Bilaterally Impaired Muscle Tone Muscle Tone WNL Yes M6 PT-IP Treatment Start: 12/25/22 11:26 Freq: NEEDED Status: Active Protocol: Document 12/25/22 13:20 KS (Rec: 12/25/22 14:01 KS [id number]) Physical Therapy Treatment Exercises Exercises Ankle Pumps,Gluteal Sets,Quad Sets,Heel Slides Education Education Provided Weight Bearing Status,Post-Op Packet,Safety M7 PT-IP Assessment and Plan Start: 12/25/22 11:26 Freq: NEEDED Status: Active Protocol: Document 12/25/22 13:20 KS (Rec: 12/25/22 14:01 KS [id number]) PT Summary Assessment and Plan Potential Rehabilitation Potential Good Summary Impairments Pain,ROM,Bed Mobility, Transfers,Gait,Activity Tolerance Progress Towards Goals Slow Progress due to Pain,Slow Progress due to Medical Issues,Slow Progress due to Activity Tolerance Assessment Summary Pt unable to tolerate progression of mobility this afternoon due to pain and fatigue. Attempted to get pt out of bed but stopped due to pain and pt completed LE exercises. At this time, pt is not safe to return home and will require SNF to improve strength and functional mobility independence as he lives alone. Goals Bed Mobility Goal Independent Transfer Goal Contact Guard Assistance Gait Goal Contact Guard Assistance Gait Distance 50 feet Days to Meet Goals 5 Frequency of Treatment Frequency Of Treatment Twice a Day Treatment Plan Physical Therapy Treatment Plan Bed Mobility Training,Transfer Training,Gait Training, Therapeutic Exercise,Post Op Education,Discharge Planning Other Recommendations and Next Treatment work on bed mobiity and Focus transfer training, increase gait distance with fww, encouage sitting up at bedside chair Precautions Other Precautions WBAT right LE Weight Bearing Status Weight Bearing Status Weight Bear as Tolerated Recommendations To Nursing Amount of Assist Needed 1 Person Assist Discharge Recommendations PT Discharge Recommendations SNF Rehab Transportation Needs at Discharge Wheelchair/Cabulance
--- NOTE | 2022-12-25 15:21 | CM.DPC ---
Met with patient and brother at bedside. They would like to choose [facility] as first choice, [facility] as second choice. Referral packet sent to [facility] and call to Chasidy at [phone] for admission intake. She states they have beds for tomorrow.
[2022-12-25] MEDS: OXYCODONE IR 5 MG TABLET 2.5 MG PO ×2 (15:26→20:35)
[2022-12-25] MEDS: QUETIAPINE 25 MG TABLET 50 MG PO (20:31)
[2022-12-25] MEDS: TOPIRAMATE 100 MG TABLET PO (20:31)
[2022-12-25] MEDS: SENNOSIDES 8.6 MG TABLET PO (20:32)
[2022-12-26 04:25] VITALS: BP 98/53; PULSE 80; RESP 16; TEMP 36.5; O2SAT 94
[2022-12-26 05:17] LABS: BUN Creatinine Ratio 18.4 (6-22); Blood Urea Nitrogen 14 mg/dL (9-20); Calcium 8.2 mg/dL (8.4-10.2); Carbon Dioxide 24 mmol/L (22-32); Chloride 107 mmol/L (98-107); Estimated Glomerular Filt Rate > 60 mL/min (>60); Glucose 95 mg/dL (80-110); HEMOLYSIS < 15 (0-50); Potassium 4.1 mmol/L (3.4-5.1); Sodium 133 mmol/L (137-145)
[2022-12-26 05:19] LABS: Hemoglobin 7.6 g/dL (13.5-17.5); Mean Corpuscular HGB Conc 34.4 % (30-36); Mean Corpuscular Hemoglobin 35.5 PG (26-34); Platelet Count 119 X10^3/uL (150-400); Red Blood Cell Count 2.14 X10^6/uL (4.5-5.9); Red Cell Distribution Width 13.3 % (11.6-14.8); White Blood Cell Count 3.8 X10^3/uL (4.5-11.0)
[2022-12-26 05:20] LABS: Add Manual Diff / Slide Review YES
[2022-12-26 05:29] LABS: Neutrophils Absolute Manual 2888 /uL (3000-5900); Total Cells Counted 100
[2022-12-26 05:30] LABS: Macrocytosis 1+; Platelet Estimate Decreased on smear
--- NOTE | 2022-12-26 07:14 | P.PN_ITS ---
Subjective Subjective Date Patient Seen: 12/26/22 Time Patient Seen: 07:14 Interval history: Pt sleeping, arouses easily to voice. Worked w/ PT yesterday, has not been OOB today. Pain well-controlled. Exam Vital Signs (past 8 hours): - 12/25/22 23:25 12/26/22 04:25 Temperature 97.6 F 97.7 F Pulse Rate 73 80 Respiratory Rate 18 16 Blood Pressure 97/54 L 98/53 L Pulse Oximetry 98 94 Oxygen Flow Rate 0 0 Oxygen Delivery Method Room Air Oxygen Flow Rate 0 Narrative Exam Narrative: 4/5 strength in hip flexors, quadriceps, hamstrings, DF, PF, EHL on right. Sensation to light touch intact throughout RLE. Calf soft, compressible, nontender and without palpable cords or masses. Dressing placed intraoperatively is CDI. Objective Labs 12/26/22 05:04 12/26/22 05:04 Labs: Laboratory Results - last 24 hr 12/26/22 12/26/22 05:04 05:04 WBC 3.8 L RBC 2.14 L Hgb 7.6 L Hct 22.0 L MCV 103.0 H MCH 35.5 H MCHC 34.4 RDW 13.3 Plt Count 119 L Neut % (Auto) Not Reportable Lymph % (Auto) Not Reportable [place] % (Auto) Not Reportable Eos % (Auto) Not Reportable Baso % (Auto) Not Reportable Lymph # (Auto) Not Reportable [place] # (Auto) Not Reportable Baso # (Auto) Not Reportable Total Counted 100 Seg Neutrophils % 62.0 Band Neutrophils % 14.0 H Lymphocytes % (Manual) 9.0 L Monocytes % (Manual) 10.0 Metamyelocytes % 5.0 H Neutrophils # (Manual) 2888 L Platelet Estimate Decreased on smear RBC Morphology See below Macrocytosis 1+ H Sodium 133 L Potassium 4.1 Chloride 107 Carbon Dioxide 24 BUN 14 Creatinine 0.76 Estimated GFR > 60 BUN/Creatinine Ratio 18.4 Glucose 95 Calcium 8.2 L PFSH Medical History Depression Hypotension Lymphoma Malnutrition Tremor Surgical History H/O abdominal surgery History of spinal surgery History of urologic surgery S/P emergency tracheotomy for assistance in breathing (~1956) Social History household members: none Smoking Status: Former smoker alcohol intake: never Assessment & Plan Post-op Assessment and plan (1) Status post hip surgery: Assessment and Plan narrative: WBAT to RLE. Pt should use a walker at all times for at least 4 weeks. ASA 81mg BID x 4 weeks for VTE prophylaxis. F/u in office in 2 weeks w/ STEVEN for staple removal and wound check. F/u in 6 weeks w/ Dr Recinos for repeat imaging and symptom check. Postoperative Procedures: Procedures Operation Date: 12/24/22 10:00 Actual Procedure Side Surgeon p Intramedullary Nailing Femur Right Ervin Recinos MD Operation Date: 12/24/22 16:00 <No data on this case meets the specified criteria> Postoperative day: 2 Quality VTE Deep Vein Thrombosis/Pulmonary Embolism Present on Admission: No
[2022-12-26 08:00] VITALS: BP 98/59; PULSE 77; RESP 20; TEMP 37.6; O2SAT 99
--- NOTE | 2022-12-26 08:39 | PM.PN.1 ---
Subjective Subjective Interval history: Patient doing well after surgery, no complaints today. Hg has dropped a bit but denies shortness of breath, chest pain. Exam Vital Signs (past 8 hours): - 12/26/22 04:25 12/26/22 08:00 Temperature 97.7 F 99.6 F Pulse Rate 80 77 Respiratory Rate 16 20 Blood Pressure 98/53 L 98/59 L Pulse Oximetry 94 99 Oxygen Flow Rate 0 Oxygen Delivery Method Room Air Oxygen Flow Rate 0 Narrative Exam Narrative: GEN: cachectic appearing male, speaks slowly HEENT: dry mucous membranes, PERRL NECK: trachea midline, no JVD CV: regular rate and rhythm, no murmurs PULM: clear bilaterally ABD: soft, nontender, nondistended, no organomegaly EXT: postop hip dressing in place NEURO: awake, alert, oriented, no focal deficits Objective Labs 12/26/22 05:04 12/26/22 05:04 Labs: Laboratory Results - last 24 hr 12/26/22 12/26/22 05:04 05:04 WBC 3.8 L RBC 2.14 L Hgb 7.6 L Hct 22.0 L MCV 103.0 H MCH 35.5 H MCHC 34.4 RDW 13.3 Plt Count 119 L Neut % (Auto) Not Reportable Lymph % (Auto) Not Reportable [place] % (Auto) Not Reportable Eos % (Auto) Not Reportable Baso % (Auto) Not Reportable Lymph # (Auto) Not Reportable [place] # (Auto) Not Reportable Baso # (Auto) Not Reportable Total Counted 100 Seg Neutrophils % 62.0 Band Neutrophils % 14.0 H Lymphocytes % (Manual) 9.0 L Monocytes % (Manual) 10.0 Metamyelocytes % 5.0 H Neutrophils # (Manual) 2888 L Platelet Estimate Decreased on smear RBC Morphology See below Macrocytosis 1+ H Sodium 133 L Potassium 4.1 Chloride 107 Carbon Dioxide 24 BUN 14 Creatinine 0.76 Estimated GFR > 60 BUN/Creatinine Ratio 18.4 Glucose 95 Calcium 8.2 L PFSH Medical History Depression Hypotension Lymphoma Malnutrition Tremor Surgical History H/O abdominal surgery History of spinal surgery History of urologic surgery S/P emergency tracheotomy for assistance in breathing (~1956) Social History household members: none Smoking Status: Former smoker alcohol intake: never Assessment & Plan Assessment & Plan narrative: # right femur fracture -patient knocked over by his dog and fell on right hip, now with intertrochanteric fracture -Dr. Grisel davis consulted and took for surgery on 12/24 -pain control ordered and appears controlled at this time -continue PT/OT, will likely need SNF # ground level fall -got knocked over by his dog and struck head on the ground, CT head negative -IVF provided initially now discontinued -PT/OT consult as above #acute blood loss anemia, with pancytopenia - no obvious active bleeding. Probably related to surgery - will continue to monitor h/h # lymphoma -follows with cedric Stewart oncologist and currently in active survelliance and not on treatment -CT abd with substantial decrease in large retroperitoneal mass which was due to his lymphoma # essential tremor -continue home primidone -hold home propranolol due to soft blood pressure # depression -continue home citalopram, seroquel and topomax # likely malnutrition and osteoporosis -underground mine machinery mechanic consult to assess level of malnutrition Code status is full code. DVT prophylaxis with lovenox. Proxy is brother Jeff. Dispo: Pending PT/OT evals and probable SNF. Quality VTE Deep Vein Thrombosis/Pulmonary Embolism Present on Admission: No
[2022-12-26] MEDS: polyethylene glycoL 3350 17 GM POWD.PACK PO (09:03)
[2022-12-26] MEDS: GABAPENTIN 300 MG CAPSULE 600 MG PO ×3 (09:04→20:58)
[2022-12-26] MEDS: ASPIRIN EC 81 MG TABLET PO ×2 (09:04→20:58)
[2022-12-26] MEDS: PRIMIDONE 50 MG TABLET 250 MG PO (09:04)
[2022-12-26] MEDS: CITALOPRAM 10 MG TABLET 40 MG PO (09:04)
[2022-12-26] MEDS: POTASSIUM CHLORIDE 20 MEQ TAB PO ×2 (09:05→20:59)
[2022-12-26] MEDS: SENNOSIDES 8.6 MG TABLET PO (09:05)
[2022-12-26] MEDS: PANTOPRAZOLE DR 20 MG TABLET 40 MG PO (09:05)
[2022-12-26] MEDS: OXYCODONE IR 5 MG TABLET 2.5 MG PO (09:06)
--- NOTE | 2022-12-26 09:25 | PT.IPTN ---
Current Diagnoses Fracture of unspecified part of neck of right femur, initial encounter for closed fracture (12/23/22) Other specified postprocedural states (12/23/22) Surgery Performed Operation Date: 12/24/22 10:00 Actual Procedures p Intramedullary Nailing Femur(Right) - Ervin Recinos MD Operation Date: 12/24/22 16:00 <No data on this case meets the specified criteria> Physical Therapy Treatment Note M2 PT-IP Current Condition Start: 12/25/22 11:26 Freq: NEEDED Status: Active Protocol: Document 12/25/22 11:26 AMH (Rec: 12/25/22 11:40 AMH [id number]) Physical Therapy Current Condition Current Condition Evaluation Date 12/25/22 Treatment Diagnosis Right femur intertrochanteric fx with ORIF WBAT R Onset Date 12/24/22 M3 PT-IP Subjective Start: 12/25/22 11:26 Freq: NEEDED Status: Active Protocol: Document 12/26/22 10:02 TS (Rec: 12/26/22 10:21 TS [id number]) Subjective Physical Therapy Visit Type Type Treatment Note Visit Start Time 09:25 Visit Stop Time 09:45 Total Visit Minutes 20 Number of LITHOPRESS OPERATOR Visits 2 Physical Therapy Visit Comments Patient Comments Pt reports feeling better than yesterday, is agreeable to PT . Therapy Pain Assessment Pain When Pain Assessed During Mobility Pain Present Pain Present Pain Reported Location R hip Intensity 4 Scale Used Numeric (0 - 10) Pain Behaviors Facial Grimacing,Wincing Pain Management Techniques Distraction,Modification of Treatment,Re-positioning, Timing of Activity with Medications M4 PT-IP Mobility and Gait Start: 12/25/22 11:26 Freq: NEEDED Status: Active Protocol: Document 12/26/22 10:02 TS (Rec: 12/26/22 10:21 TS [id number]) PT-Bed Mobility Assessment Supine to Sit Supine to Sit Maximum Assistance,Head of Bed Elevated Scooting Scooting to Edge of Bed Moderate Assistance PT-Transfer Assessment Sit to and From Stand Sit to and from Stand Maximum Assistance Equipment Transfer Assistive Device Gait Belt,Front Wheeled Walker Orthotic/Prosthetic Devices or Brace: No Transfers Transfer Destination Chair Transfer Technique Stand Step Pivot Transfer Ability Level of Assist Moderate Assistance Comments Mobility Comments Pt found resting in bed, agreeable to PT. Supine to sit HOB elevated 40D MaxA for RLE to EOB and uprighting trunk, provided Max cues for sequencing. He scooted to EOB ModA with slow movements, provided cues for feet flat on floor. He performed sit to stand MaxA with back of LEs braced against bed for balance , pt heavily retroleans with feet out in front of him, provided cues for weight forward, upright posture and feet underneath him. Pt transferred to chair ModA with stand step pivot shuffling gait, ModA for balance, pt slow with movements and difficulty weight bearing on RLE. He required max cues for transfer sequencing and FWW management. Pt was left in chair with call light in reach , SCD's on, all needs met. Gait Assessment Gait Gait Assistance Required: Standby Assistance Distance (Feet) 5 Able to Maintain Weight Bearing Status Yes During Gait Assistive Devices Assistive Device Gait Belt,Front Wheeled Walker Orthotic/Prosthetic Devices or Brace: No Gait Deviations General Gait Pattern Antalgic,Decreased Stride Length,Decreased Feet Clearance,Step-to Gait Factors Limiting Gait Function Factors Limiting Gait Function Decreased Activity Tolerance, Decreased Strength,Limited Range of Motion,Pain,Poor Balance,Poor Safety Awareness Comments Gait Comments See mobility comments. PT-Balance Assessment Sitting Balance and Reactions Static Sitting Balance Ability Fair Dynamic Sitting Balance Ability Fair Standing Balance and Reactions Static Standing Balance Ability Fair Dynamic Standing Balance Ability Poor M5 PT-IP Objective Assessments Start: 12/25/22 11:26 Freq: NEEDED Status: Active Protocol: Document 12/25/22 11:26 AMH (Rec: 12/25/22 11:40 AMH [id number]) Orientation Orientation/Cognition Level of Alertness Alert Safety Awareness Understands Safety Issues Memory Description No Deficits Noted Gross Range of Motion Upper Extremity ROM Assessment Within Functional Limits Lower Extremity ROM Assessment Bilaterally Impaired Impairments pt notes that when attempting to move his left leg it hurts his right side so his ROM on the left was impaired today as well. He notes usually his motion is WNL Strength Upper Extremity Strength Assessment Within Functional Limits Lower Extremity Strength Assessment Bilaterally Impaired Muscle Tone Muscle Tone WNL Yes M6 PT-IP Treatment Start: 12/25/22 11:26 Freq: NEEDED Status: Active Protocol: Document 12/26/22 10:02 TS (Rec: 12/26/22 10:21 TS [id number]) Physical Therapy Treatment Education Education Provided Weight Bearing Status,Post-Op Packet,Safety M7 PT-IP Assessment and Plan Start: 12/25/22 11:26 Freq: NEEDED Status: Active Protocol: Document 12/26/22 10:02 TS (Rec: 12/26/22 10:21 TS [id number]) PT Summary Assessment and Plan Potential Rehabilitation Potential Good Summary Impairments Pain,ROM,Bed Mobility, Transfers,Gait,Activity Tolerance Progress Towards Goals Slow Progress due to Pain,Slow Progress due to Medical Issues,Slow Progress due to Activity Tolerance Assessment Summary Pt continues to make slow progress with his mobility. He required MaxA for supine to sit and ModA for scooting to EOB. He performed sit to stand MaxA with FWW, pt heavily retroleans and braces back of LEs against bed to support himself. He performed stand step pivot transfer to chair with shuffle gait, difficulty weight bearing on RLE requiring ModA. Pt requires max cueing for all mobility and has poor activity tolerance, fatigues quickly. PT is recommending SNF to progress all functional mobility and activity tolerance. Goals Bed Mobility Goal Independent Transfer Goal Contact Guard Assistance Gait Goal Contact Guard Assistance Gait Distance 50 feet Days to Meet Goals 5 Frequency of Treatment Frequency Of Treatment Twice a Day Treatment Plan Physical Therapy Treatment Plan Bed Mobility Training,Transfer Training,Gait Training, Therapeutic Exercise,Post Op Education,Discharge Planning Other Recommendations and Next Treatment work on bed mobiity and Focus transfer training, increase gait distance with fww, encouage sitting up at bedside chair Precautions Other Precautions WBAT right LE Weight Bearing Status Weight Bearing Status Weight Bear as Tolerated Recommendations To Nursing Amount of Assist Needed 1 Person Assist Discharge Recommendations PT Discharge Recommendations SNF Rehab Transportation Needs at Discharge Wheelchair/Cabulance
[2022-12-26 12:00] VITALS: BP 93/53; PULSE 86; RESP 18; TEMP 36.7; O2SAT 100
--- NOTE | 2022-12-26 13:05 | PT.IPTN ---
Current Diagnoses Fracture of unspecified part of neck of right femur, initial encounter for closed fracture (12/23/22) Other specified postprocedural states (12/23/22) Surgery Performed Operation Date: 12/24/22 10:00 Actual Procedures p Intramedullary Nailing Femur(Right) - Ervin Recinos MD Operation Date: 12/24/22 16:00 <No data on this case meets the specified criteria> Physical Therapy Treatment Note M2 PT-IP Current Condition Start: 12/25/22 11:26 Freq: NEEDED Status: Active Protocol: Document 12/25/22 11:26 AMH (Rec: 12/25/22 11:40 AMH [id number]) Physical Therapy Current Condition Current Condition Evaluation Date 12/25/22 Treatment Diagnosis Right femur intertrochanteric fx with ORIF WBAT R Onset Date 12/24/22 M3 PT-IP Subjective Start: 12/25/22 11:26 Freq: NEEDED Status: Active Protocol: Document 12/26/22 13:40 TS (Rec: 12/26/22 13:58 TS [id number]) Subjective Physical Therapy Visit Type Type Treatment Note Visit Start Time 13:05 Visit Stop Time 13:37 Total Visit Minutes 32 Number of BULLION WEIGHER Visits 3 Physical Therapy Visit Comments Patient Comments Pt reports wanting to use toilet, agreeable to PT. Therapy Pain Assessment Pain When Pain Assessed During Mobility Pain Present Pain Present Pain Reported Location R hip Intensity 3 Scale Used Numeric (0 - 10) Pain Behaviors Facial Grimacing,Wincing Pain Management Techniques Distraction,Modification of Treatment,Re-positioning, Timing of Activity with Medications M4 PT-IP Mobility and Gait Start: 12/25/22 11:26 Freq: NEEDED Status: Active Protocol: Document 12/26/22 13:40 TS (Rec: 12/26/22 13:58 TS [id number]) PT-Transfer Assessment Sit to and From Stand Sit to and from Stand Maximum Assistance Equipment Transfer Assistive Device Gait Belt,Front Wheeled Walker Orthotic/Prosthetic Devices or Brace: No Comments Mobility Comments Sit to stand MaxA from chair, provided cues for UEs on arms of chair and feet underneath him, retroleans heavily. He ambulated ModA ~10' with FWW, very slow gait with difficulty weight bearing on RLE. Sit to stand from toilet MaxA with BUE support on FWW, pt requiring increased assist from lower surface of toilet. He ambulated to EOB Ed for balance with continued slow step to gait. Sit to supine Max for LEs into bed, provided cues for BUEs support and repositioning of trunk. Scooted to HOB MaxA x2, provided cues for pushing through heels on bed and rail support. Pt was left in bed with call light nearby, all needs met. Gait Assessment Gait Gait Assistance Required: Minimum Assistance,Moderate Assistance Distance (Feet) 20 Able to Maintain Weight Bearing Status Yes During Gait Assistive Devices Assistive Device Gait Belt,Front Wheeled Walker Orthotic/Prosthetic Devices or Brace: No Gait Deviations General Gait Pattern Antalgic,Decreased Stride Length,Decreased Feet Clearance,Step-to Gait Factors Limiting Gait Function Factors Limiting Gait Function Decreased Activity Tolerance, Decreased Strength,Limited Range of Motion,Pain,Poor Balance,Poor Safety Awareness Comments Gait Comments Pt initially ModA for gait, progressed to Ed. See mobility comments. PT-Balance Assessment Sitting Balance and Reactions Static Sitting Balance Ability Fair Dynamic Sitting Balance Ability Fair Standing Balance and Reactions Static Standing Balance Ability Fair Dynamic Standing Balance Ability Poor M5 PT-IP Objective Assessments Start: 12/25/22 11:26 Freq: NEEDED Status: Active Protocol: Document 12/25/22 11:26 AMH (Rec: 12/25/22 11:40 AMH [id number]) Orientation Orientation/Cognition Level of Alertness Alert Safety Awareness Understands Safety Issues Memory Description No Deficits Noted Gross Range of Motion Upper Extremity ROM Assessment Within Functional Limits Lower Extremity ROM Assessment Bilaterally Impaired Impairments pt notes that when attempting to move his left leg it hurts his right side so his ROM on the left was impaired today as well. He notes usually his motion is WNL Strength Upper Extremity Strength Assessment Within Functional Limits Lower Extremity Strength Assessment Bilaterally Impaired Muscle Tone Muscle Tone WNL Yes M6 PT-IP Treatment Start: 12/25/22 11:26 Freq: NEEDED Status: Active Protocol: Document 12/26/22 13:40 TS (Rec: 12/26/22 13:58 TS [id number]) Physical Therapy Treatment Education Education Provided Weight Bearing Status,Post-Op Packet,Safety M7 PT-IP Assessment and Plan Start: 12/25/22 11:26 Freq: NEEDED Status: Active Protocol: Document 12/26/22 13:40 TS (Rec: 07/24/23 13:58 TS [id number]) PT Summary Assessment and Plan Potential Rehabilitation Potential Good Summary Impairments Pain,ROM,Bed Mobility, Transfers,Gait,Activity Tolerance Progress Towards Goals Slow Progress due to Pain,Slow Progress due to Medical Issues,Slow Progress due to Activity Tolerance Assessment Summary Pt made some progress with his mobility but remains limited by pain, decreased strength and balance. He performed sit to stand x2, required increased assist from lower surface of toilet due to heavy retrolean and decreased strength. He progressed his ambulation to 20' initially ModA, progressed to Ed from bathroom to bed. Pt continues to have slow gait with decreased weight bearing on RLE. PT continues to recommend SNF to progress all functional mobility and activity tolerance. Goals Bed Mobility Goal Independent Transfer Goal Contact Guard Assistance Gait Goal Contact Guard Assistance Gait Distance 50 feet Days to Meet Goals 5 Frequency of Treatment Frequency Of Treatment Twice a Day Treatment Plan Physical Therapy Treatment Plan Bed Mobility Training,Transfer Training,Gait Training, Therapeutic Exercise,Post Op Education,Discharge Planning Other Recommendations and Next Treatment work on bed mobiity and Focus transfer training, increase gait distance with fww, encouage sitting up at bedside chair Precautions Other Precautions WBAT right LE Weight Bearing Status Weight Bearing Status Weight Bear as Tolerated
[2022-12-26] MEDS: ACETAMINOPHEN 325 MG TABLET 650 MG PO (15:48)
[2022-12-26] MEDS: SODIUM CHLORIDE 0.9% FLUSH 10 ML IV ×2 (15:48→20:58)
[2022-12-26 16:00] VITALS: BP 99/59; PULSE 79; RESP 18; TEMP 36.8; O2SAT 100
--- NOTE | 2022-12-26 18:42 | PC.NURSE ---
Patient felt first urge to urinate this evening after killian cath removal at 1105 am. Encouraged patient to get OOB to BSC or stand to urinate, patient sat on BSC and passed gas. Did not urinate, bladder scan shows approx 280-350cc. Dr Martinez notified, order to straight cath if bladder scan shows urine > 400cc and unable to void. Patient will call again when he feels urge, urinal within reach. call light within reach.
[2022-12-26 19:28] VITALS: BP 97/59; PULSE 75; RESP 18; TEMP 36.6; O2SAT 99
[2022-12-26] MEDS: QUETIAPINE 25 MG TABLET 50 MG PO (20:57)
[2022-12-26] MEDS: TOPIRAMATE 100 MG TABLET PO (20:57)
[2022-12-26] MEDS: OXYCODONE IR 5 MG TABLET PO (20:58)
[2022-12-26] MEDS: HYDROMORPHONE 0.5 MG INJ IV (21:52)
[2022-12-26 23:54] VITALS: BP 102/57; PULSE 75; RESP 17; TEMP 36.5; O2SAT 98
[2022-12-27] MEDS: HYDROMORPHONE 0.5 MG INJ IV (02:51)
[2022-12-27] MEDS: SODIUM CHLORIDE 0.9% FLUSH 10 ML IV ×2 (02:52→10:35)
[2022-12-27 03:43] VITALS: BP 93/57; PULSE 79; RESP 16; TEMP 37.2; O2SAT 94
[2022-12-27 05:05] LABS: BUN Creatinine Ratio 18.9 (6-22); Blood Urea Nitrogen 18 mg/dL (9-20); Calcium 8.3 mg/dL (8.4-10.2); Carbon Dioxide 23 mmol/L (22-32); Chloride 108 mmol/L (98-107); Estimated Glomerular Filt Rate > 60 mL/min (>60); Glucose 96 mg/dL (80-110); HEMOLYSIS < 15 (0-50); Magnesium 1.7 mg/dL (1.6-2.3); Sodium 136 mmol/L (137-145)
[2022-12-27 05:18] LABS: Hemoglobin 7.6 g/dL (13.5-17.5); Mean Corpuscular HGB Conc 34.5 % (30-36); Mean Corpuscular Hemoglobin 35.5 PG (26-34); Platelet Count 132 X10^3/uL (150-400); Red Blood Cell Count 2.14 X10^6/uL (4.5-5.9); Red Cell Distribution Width 13.4 % (11.6-14.8); White Blood Cell Count 3.3 X10^3/uL (4.5-11.0)
[2022-12-27 05:32] LABS: Add Manual Diff / Slide Review YES
[2022-12-27 05:56] LABS: Macrocytosis 1+; Neutrophils Absolute Manual 2178 /uL (3000-5900); Total Cells Counted 100
[2022-12-27 08:00] VITALS: BP 99/55; PULSE 76; RESP 18; TEMP 36.8; O2SAT 97
--- NOTE | 2022-12-27 08:17 | P.DS_ITS ---
History of Present Illness History of Present Illness Date Patient Seen: 12/23/22 Chief complaint: Fall, hit head, Rt. hip pain with shortening. Narrative: Red Daniels is a 72-year-old male with past medical history of lymphoma currently on treatment, essential tremor and depression who presents with right hip fracture after being knocked over by his dog. Patient states he landed on his right hip and had immediate pain. His pain is currently manageable as long as he doesn't move his hip. He also struck his head when he fell but did not lose consciousness. Discharge Providers Provider Date of admission: 12/23/22 16:12 Discharge Date: 12/27/22 Primary care physician: Doctor Prosper MD Consults: 12/23/22 16:27 Consult to Orthopedic Surgery Routine Comment: Consulting Provider: Ervin Recinos Reason for consultation: hip fracture Has provider been notified: Yes 12/23/22 17:56 Consult to Dietitian, Adult Routine Comment: Reason For Exam: unable to gain weight low jil Consult to Speech Therapy Evaluate & Treat Comment: Physician Instructions: Evaluate and treat 12/23/22 18:05 Consult to Dietitian, Adult Routine Comment: Reason For Exam: assess for malnutrition 12/24/22 12:53 Consult to Discharge Planning Routine Comment: Consult to Physical Therapy Evaluate & Treat Comment: Physician Instructions: Evaluate and Treat Discharge provider: Jamal Marquez, Summary Hospital Course Discharge Diagnosis: # right femur fracture, likely due to osteoporosis -patient knocked over by his dog and fell on right hip, now with intertrochanteric fracture -Dr. Recinos ortho consulted and took for surgery on 12/24 -pain control ordered and appears controlled at this time -continue PT/OT, will need SNF -ASA 81 BID x4 weeks # ground level fall -got knocked over by his dog and struck head on the ground, CT head negative -IVF provided initially now discontinued -PT/OT consult as above #acute blood loss anemia, with pancytopenia ?- no obvious active bleeding. Probably related to surgery ?- will continue to monitor h/h - Hgb 7.6 x2, but given lymphoma will transfuse with 1 units of PRBC to keep >8 # lymphoma -follows with cedric Stewart oncologist and currently in active survelliance and not on treatment -CT abd with substantial decrease in large retroperitoneal mass which was due to his lymphoma # essential tremor -continue home primidone -hold home propranolol due to soft blood pressure -resumed propranolol on dc # depression -continue home citalopram, seroquel and topomax # likely malnutrition and osteoporosis -personalized living assistant consult to assess level of malnutrition Hospital Course: Admitted for GLF resulting in right femur fracture. Underwent surgery with ortho. Had some post-op anemia which was stable, but given 1 unit PRBC to get Hgb above 8. No evidence of active bleeidng. PT rec SNF so patient discharged to [facility] on 81mg aspirin BID x4 weeks and will f/u with ortho in clinic in 2 weeks. Time Spent with Patient Time spent: Greater than 30 minutes Exam Vital Signs (past 8 hours): - 12/27/22 03:43 Temperature 98.9 F Pulse Rate 79 Respiratory Rate 16 Blood Pressure 93/57 L Pulse Oximetry 94 Oxygen Flow Rate 0 Oxygen Delivery Method Room Air Oxygen Flow Rate 0 Narrative Exam Narrative: GEN: cachectic appearing male, speaks slowly HEENT: dry mucous membranes, PERRL NECK: trachea midline, no JVD CV: regular rate and rhythm, no murmurs PULM: clear bilaterally ABD: soft, nontender, nondistended, no organomegaly EXT: postop hip dressing in place NEURO: awake, alert, oriented, no focal deficits Objective Labs 12/27/22 04:35 12/27/22 04:35 Labs: Laboratory Results - last 24 hr 12/27/22 12/27/22 04:35 04:35 WBC 3.3 L RBC 2.14 L Hgb 7.6 L Hct 22.0 L MCV 103.0 H MCH 35.5 H MCHC 34.5 RDW 13.4 Plt Count 132 L Neut % (Auto) Not Reportable Lymph % (Auto) Not Reportable Simpson % (Auto) Not Reportable Eos % (Auto) Not Reportable Baso % (Auto) Not Reportable Lymph # (Auto) Not Reportable Simpson # (Auto) Not Reportable Baso # (Auto) Not Reportable Total Counted 100 Seg Neutrophils % 51.0 Band Neutrophils % 15.0 H Lymphocytes % (Manual) 16.0 L Monocytes % (Manual) 8.0 Eosinophils % (Manual) 1.0 L Basophils % (Manual) 1.0 Metamyelocytes % 8.0 H Neutrophils # (Manual) 2178 L RBC Morphology See below Macrocytosis 1+ H Sodium 136 L Potassium 4.0 Chloride 108 H Carbon Dioxide 23 BUN 18 Creatinine 0.95 Estimated GFR > 60 BUN/Creatinine Ratio 18.9 Glucose 96 Calcium 8.3 L Magnesium 1.7 PFSH Medical History Depression Hypotension Lymphoma Malnutrition Tremor Surgical History H/O abdominal surgery History of spinal surgery History of urologic surgery S/P emergency tracheotomy for assistance in breathing (~1955) Social History household members: none Smoking Status: Former smoker alcohol intake: never Discharge Plan Discharge Plan Patient Disposition: SNF Discharge orders & Medications Prescriptions: New oxycodone 5 mg Tablet 5 mg PO Q4HR PRN (Reason: Pain, Severe (7-10)) 30 Days Qty: 30 0RF aspirin 81 mg tablet,chewable 81 mg PO BID 28 Days Qty: 56 0RF Continued propranolol 80 mg Tablet 20 mg PO BID citalopram 40 mg Tablet 40 mg PO DAILY pantoprazole [Protonix] 20 mg Tablet,Delayed Release (Dr/Ec) 40 mg PO DAILY primidone 250 mg Tablet 250 mg PO DAILY gabapentin 300 mg Capsule 600 mg PO TID topiramate 100 mg BEDTIME quetiapine 50 mg Tablet 50 mg PO BEDTIME potassium chloride 20 mEq Tablet Extended Release 20 meq PO BID Follow up/Referrals: Ervin Recinos MD [Physician] - 2 Weeks (F/u in office in 2 weeks w/ STEVEN for staple removal and wound check. F/u in 6 weeks w/ Dr Recions for x-rays and symptom check.) Miscellaneous,DoctorMD [Primary Care Provider] - Diet/Activity/Treatments Activity: Weightbearing as tolerated to right leg. Walker at all times for at least 4 weeks. Skin/Wound/Dressing Care Dressing: May remove dressing and replace with clean, dry gauze on 12/27/2022. May remove dressings completely and leave incisions open to air on 12/31/2022. No bathing or otherwise soaking incisions. Do not apply any creams, lotions, or ointments to incisions. Visit Report/Discharge Packet Stand Alone Forms: Patient Portal/API Discharge Data Primary Care Provider: Miscellaneous,Doctor Quality VTE Deep Vein Thrombosis/Pulmonary Embolism Present on Admission: No
--- NOTE | 2022-12-27 08:20 | P.PN_ITS ---
Subjective Subjective Date Patient Seen: 12/27/22 Time Patient Seen: 08:21 Interval history: Patient's pain is mild. Denies fever or chills. No nausea /vomiting. Exam Vital Signs (past 8 hours): - 12/27/22 03:43 Temperature 98.9 F Pulse Rate 79 Respiratory Rate 16 Blood Pressure 93/57 L Pulse Oximetry 94 Oxygen Flow Rate 0 Oxygen Delivery Method Room Air Oxygen Flow Rate 0 Narrative Exam Narrative: Right hip dressing is clean, dry and intact. Motor functions intact bilateral lower extremities. Sensation grossly intact to light touch bilateral lower extremities. Const General: cooperative and comfortable Orientation: alert Objective Labs 12/27/22 04:35 12/27/22 04:35 Labs: Laboratory Results - last 24 hr 12/27/22 12/27/22 04:35 04:35 WBC 3.3 L RBC 2.14 L Hgb 7.6 L Hct 22.0 L MCV 103.0 H MCH 35.5 H MCHC 34.5 RDW 13.4 Plt Count 132 L Neut % (Auto) Not Reportable Lymph % (Auto) Not Reportable Hamilton % (Auto) Not Reportable Eos % (Auto) Not Reportable Baso % (Auto) Not Reportable Lymph # (Auto) Not Reportable Hamilton # (Auto) Not Reportable Baso # (Auto) Not Reportable Total Counted 100 Seg Neutrophils % 51.0 Band Neutrophils % 15.0 H Lymphocytes % (Manual) 16.0 L Monocytes % (Manual) 8.0 Eosinophils % (Manual) 1.0 L Basophils % (Manual) 1.0 Metamyelocytes % 8.0 H Neutrophils # (Manual) 2178 L RBC Morphology See below Macrocytosis 1+ H Sodium 136 L Potassium 4.0 Chloride 108 H Carbon Dioxide 23 BUN 18 Creatinine 0.95 Estimated GFR > 60 BUN/Creatinine Ratio 18.9 Glucose 96 Calcium 8.3 L Magnesium 1.7 PFSH Medical History Depression Hypotension Lymphoma Malnutrition Tremor Surgical History H/O abdominal surgery History of spinal surgery History of urologic surgery S/P emergency tracheotomy for assistance in breathing (~195) Social History household members: none Smoking Status: Former smoker alcohol intake: never Assessment & Plan Post-op Postoperative Procedures: Procedures Operation Date: 12/24/22 10:00 Actual Procedure Side Surgeon p Intramedullary Nailing Femur Right Ervin Recinos MD Operation Date: 12/24/22 16:00 <No data on this case meets the specified criteria> Postoperative day: 3 Postoperative status narrative: Stable status post right femur open reduction internal fixation with intramedullary device Postoperative plan narrative: Weightbearing as tolerated right lower extremity. Aspirin 81 mg b.i.d. x4 weeks for DVT prophylaxis. Follow up in 2 weeks. Quality VTE Deep Vein Thrombosis/Pulmonary Embolism Present on Admission: No
[2022-12-27] MEDS: CITALOPRAM 10 MG TABLET 40 MG PO (09:24)
[2022-12-27] MEDS: PANTOPRAZOLE DR 20 MG TABLET 40 MG PO (09:25)
[2022-12-27] MEDS: ASPIRIN EC 81 MG TABLET PO (09:25)
[2022-12-27] MEDS: GABAPENTIN 300 MG CAPSULE 600 MG PO (09:25)
[2022-12-27] MEDS: SENNOSIDES 8.6 MG TABLET PO (09:25)
[2022-12-27] MEDS: POTASSIUM CHLORIDE 20 MEQ TAB PO (09:26)
[2022-12-27] MEDS: OXYCODONE IR 5 MG TABLET PO (09:28)
[2022-12-27 10:07] VITALS: BP 95/56; PULSE 81; RESP 18; TEMP 36.6; O2SAT 98
[2022-12-27 10:23] VITALS: BP 94/58; PULSE 78; RESP 16; TEMP 36.4
[2022-12-27 10:35] VITALS: BP 102/61; PULSE 79; RESP 16; TEMP 36.4
--- NOTE | 2022-12-27 10:41 | PT-IP ANOTE ---
Pt is currently receiving blood transfusion is not appropriate for PT at this time. Pt is to d/c this afternoon. May attempt to see later in afternoon if pt is still in hospital.
[2022-12-27 13:08] VITALS: BP 102/64; PULSE 81; RESP 18; TEMP 36.9
--- NOTE | 2022-12-27 14:26 | PC.NURSE ---
Pt is A&OX4 this a.m. VSS, afebrile on RA (soft BP's) he denies dizziness, SOB, headache, n/v. He is typed and screened for 1 unit of blood this a.m. He consents for the blood this a.m. stating he has had transfusions in the past. He reports pain to R hip is minimal at 2-3/10 when he is not moving but up to 7/10 with movement. He is given prn senna and miralax as he has not had a BM recorded and states he has not had a BM since admission. He has good po intake this a.m. and for lunch and able to feed himself. Dial output adequate with clear yellow urine.He tolerates the unit of blood well this a.m. He is medically cleared for discharge after receiving the unit of blood to [facility] [place]. Facility designee arrives with wheel chair at 1300. Patient's blood completed and port de accessed. He is transported via w/ch with all of his belongings at approximately 1325. RN attempted to reach [facility] to give report at [phone]. Left voicemail. RN Left Voicemail with patient's brother informing him of the time of transport as well.
--- NOTE | 2022-12-27 15:36 | CM.DPC ---
DCP Discharge SNF Per MD, pt is medically stable to d/c to SNF today after one unit of blood transfusion. Per RN, will likely take a couple hours for blood transfusion. MAE called Chasidy at [facility] who confirms they can accept pt today and can provide transport around 1300. GRACY Samina kindly faxed [facility], signed med list, scripts, d/c summary and orders to [facility] to review. Per RN, pt aware of discharge and remains agreeable as [facility] was his first SNF choice. RESIDENT INTERN, mortgage collector, and RN updated on time of transport. Plan: Patient to d/c to [facility] today at 1300 via facility van prior to safe d/c home. RANJITH Camejo
== END 2022-12-27 13:25 | DRG 481 ==
LOC: ED 13:34 → AC 16:13
PROVIDERS: Internal Medicine; Orthopaedic Surgery Orthopaedic Surgery of the Spine; Admitting Provider Student in an Organized Health Care Education/Training Program; Emergency Provider Physician Assistant Medical; Referring Provider Physician Assistant Medical; Visit Provider Student in an Organized Health Care Education/Training Program
PROC: 0QS606Z Reposition Right Upper Femur with Intramedullary Internal Fixation Device, Open Approach (ICD-10-PCS; CPT 27245; principal; 2022-12-24 10:00)
DX: M80.051A Age-related osteoporosis with current pathological fracture, right femur, initial encounter for fracture (principal); C85.93 Non-Hodgkin lymphoma, unspecified, intra-abdominal lymph nodes; D61.818 Other pancytopenia; D62 Acute posthemorrhagic anemia; G25.0 Essential tremor; F32.A Depression, unspecified; Z87.891 Personal history of nicotine dependence; W54.1XXA Struck by dog, initial encounter
CPT/HCPCS: 36415; 36430; 36591; 70450; 72125; 73502; 74177; 76000; 80048; 80053; 83735; 85007; 85025; 85610; 86850; 86900; 86901; 96374; 96375; 97110; 97116; 97161; 97530; 99283; 99285; P9016; J0171; J1170; J1642; J1650; J2270; J2704; J3010; Q9967